=== PATIENT | male | born 1945 | race Caucasian/White ===

== ENCOUNTER 2018-11-10 17:11 | Emergency (ER) | payer MEDICARE ==
[2018-11-10] MEDS ORDERED: fentaNYL 100 MCG/2 ML SDV IVPUSH ONE (17:33)
--- NOTE | 2018-11-10 17:47 | EDM.PDOC ---
ED HPI GENERAL MEDICAL PROBLEM - General Chief Complaint: Abdominal Pain Stated Complaint: SENT FROM CLINIC Time Seen by Provider: 11/10/18 17:32 Source of Information: Reports: Patient, Provider, RN Notes Reviewed History Limitations: Reports: No Limitations - History of Present Illness INITIAL COMMENTS - FREE TEXT/NARRATIVE: 73-year-old gentleman brought over from clinic today for a AAA found on CT scan , he initially presented to the clinic for vague abdominal pain epigastric region for about 1 week evaluation in clinic included lab work CBC and a CMP which were fairly unremarkable CT scan the abdomen does show 6.8 cm dilated abdominal a aortic aneurysm radiology was unclear if this was slightly leaking with impending rupture. Upper Abdomen Pain Score (Numeric/FACES): 5 - Related Data Allergies Allergy/AdvReac Type Severity Reaction Status Date / Time No Known Allergies Allergy Verified 11/10/18 17:29 Home Meds: Home Meds Simvastatin [Zocor] 1 tab PO BEDTIME 06/19/18 [History] Tamsulosin [Flomax] 1 tab PO DAILY 06/19/18 [History] Aspirin [Enrico Chewable] 81 mg PO DAILY 11/10/18 [History] Calcium Carbonate/Vitamin D3 [Calcium Carb 500 MG] 600 mg PO DAILY 11/10/18 [ History] Fish Oil/DHA/EPA [Fish Oil 1,200 MG] 1 tab PO DAILY 11/10/18 [History] Multivitamin [Multi-Vitamin Daily] 1 tab PO DAILY 11/10/18 [History] Past Medical History Cardiovascular History: Reports: High Cholesterol Genitourinary History: Reports: Other (See Below) Other Genitourinary History: 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 Hematospermia - Infectious Disease History Infectious Disease History: Reports: Chicken Pox, Measles, Mumps - Past Surgical History Male Surgical History: Reports: Vasectomy, Other (See Below) Other Male Surgeries/Procedures: reversal of vasectomy Social & Family History - Tobacco Use Smoking Status *Q: Current Every Day Smoker Years of Tobacco use: 60 Packs/Tins Daily: 0.2 Used Tobacco, but Quit: No Second Hand Smoke Exposure: Yes - Caffeine Use Caffeine Use: Reports: Coffee, Energy Drinks, Soda, Tea - Alcohol Use Date of Last Drink: 01/09/18 Time of Last Drink: 20:00 - Recreational Drug Use Recreational Drug Use: No ED ROS GENERAL - Review of Systems Review Of Systems: See Below Constitutional: Reports: No Symptoms HEENT: Reports: No Symptoms Respiratory: Reports: No Symptoms Cardiovascular: Reports: No Symptoms GI/Abdominal: Reports: Abdominal Pain. Denies: Nausea, Vomiting : Reports: No Symptoms Musculoskeletal: Reports: No Symptoms Skin: Reports: No Symptoms Neurological: Reports: No Symptoms ED EXAM, GI/ABD - Physical Exam Exam: See Below Exam Limited By: No Limitations General Appearance: Alert, WD/WN, No Apparent Distress Respiratory/Chest: No Respiratory Distress, Lungs Clear, Normal Breath Sounds, No Accessory Muscle Use, Chest Non-Tender Cardiovascular: Regular Rate, Rhythm, No Murmur GI/Abdominal Exam: Soft, Other (Pulsatile mass) Course - Vital Signs Last Recorded V/S: Last Vital Signs Temp 98.4 F 11/10/18 17:42 Pulse 99 11/10/18 17:51 Resp 23 H 11/10/18 17:51 BP 137/96 H 11/10/18 17:51 Pulse Ox 95 11/10/18 17:51 - Orders/Labs/Meds Orders: Active Orders 24 hr Category Date Time Status EKG Documentation Completion [RC] ASDIRECTED Care 11/10/18 17:53 Active EKG 12 Lead [EK] Stat Ther 11/10/18 17:53 Ordered Meds: Medications Discontinued Medications Generic Name Dose Route Start Last Admin Trade Name Parris PRN Reason Stop Dose Admin Fentanyl 50 mcg 11/10/18 17:33 11/10/18 17:49 Sublimaze IVPUSH 11/10/18 17:34 50 mcg ONETIME ONE Administration Departure - Departure Time of Disposition: 18:04 Disposition: DC/Tfer to Acute Hospital 02 Condition: Poor Clinical Impression: AAA (abdominal aortic aneurysm) Qualifiers: Presence of rupture: without rupture Qualified Code(s): I71.4 - Abdominal aortic aneurysm, without rupture - Discharge Information Referrals: PCP,None [Primary Care Provider] - Forms: ED Department Discharge - My Orders Last 24 Hours: My Active Orders 11/10/18 17:53 EKG Documentation Completion [RC] ASDIRECTED EKG 12 Lead [EK] Stat - Assessment/Plan Last 24 Hours: My Active Orders 11/10/18 17:53 EKG Documentation Completion [RC] ASDIRECTED EKG 12 Lead [EK] Stat Plan: Assessment Acuity = acute Site and laterality = abdominal aortic aneurysm Etiology = unclear etiology Manifestations = abdominal pain Location of injury = Home Lab values = CT scan reveals 6.8 cm abdominal aortic aneurysm radiology was unclear whether this was concern for impending rupture Plan Called discussed case with [facility] at 1730 plan is to have consultation with interventional radiology and general surgery for best course of action after reviewing films. Patient was accepted by Dr. Blue at 1800 will be transported via EMS ground This note was dictated using [employer] voice recognition software please call with any questions on syntax or grammar.
== END 2018-11-10 18:42 ==
LOC: JP.ED 17:11
DX: I71.4 Abdominal aortic aneurysm, without rupture (principal); E78.00 Pure hypercholesterolemia, unspecified; F17.210 Nicotine dependence, cigarettes, uncomplicated; Z79.899 Other long term (current) drug therapy; Z79.82 Long term (current) use of aspirin; R10.13 Epigastric pain; N40.0 Benign prostatic hyperplasia without lower urinary tract symptoms
CPT/HCPCS: 74177; 93005; 96374; 99284; 99285; J3010; J7030; Q9967

== ENCOUNTER 2018-11-17 17:29 | Emergency (ER) | payer MEDICARE ==
--- NOTE | 2018-11-17 18:11 | EDM.PDOC ---
ED HPI GENERAL MEDICAL PROBLEM - General Chief Complaint: Skin Complaint Stated Complaint: COMPLICATIONS FROM SURGERY Time Seen by Provider: 11/17/18 18:00 Source of Information: Reports: Patient, Family History Limitations: Reports: No Limitations - History of Present Illness INITIAL COMMENTS - FREE TEXT/NARRATIVE: 73-year-old male had an aortic repair one week ago with the approach through the groin bilaterally. Yesterday he had a small amount of clear fluid leaking from the incisions and today there is some swelling so she wanted to check. He feels fine he has no fever there is no redness no warmth. Onset: Unknown/Unsure Location: Reports: Other (Bilateral incisions in the groins) Associated Symptoms: Reports: No Other Symptoms Lower Abdomen Pain Score (Numeric/FACES): 2 - Related Data Allergies Allergy/AdvReac Type Severity Reaction Status Date / Time iodine Allergy Rash Verified 11/17/18 17:50 Home Meds: Home Meds Simvastatin [Zocor] 1 tab PO BEDTIME 06/19/18 [History] Tamsulosin [Flomax] 1 tab PO DAILY 06/19/18 [History] Aspirin [Enrico Chewable] 81 mg PO DAILY 11/10/18 [History] Calcium Carbonate/Vitamin D3 [Calcium Carb 500 MG] 600 mg PO DAILY 11/10/18 [ History] Fish Oil/DHA/EPA [Fish Oil 1,200 MG] 1 tab PO DAILY 11/10/18 [History] Multivitamin [Multi-Vitamin Daily] 1 tab PO DAILY 11/10/18 [History] Hydrocodone/Acetaminophen [Hydrocodon-Acetaminophen 5-325] 1 tab PO Q4H PRN 04/29 [History] Past Medical History Cardiovascular History: Reports: Aneurysm, High Cholesterol Respiratory History: Reports: COPD Genitourinary History: Reports: Other (See Below) Other Genitourinary History: 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 Hematospermia Musculoskeletal History: Reports: Back Pain, Chronic - Infectious Disease History Infectious Disease History: Reports: Chicken Pox, Measles, Mumps - Past Surgical History Cardiovascular Surgical History: Reports: AAA Repair Male Surgical History: Reports: Vasectomy, Other (See Below) Other Male Surgeries/Procedures: reversal of vasectomy Neurological Surgical History: Reports: C-Spine Social & Family History - Tobacco Use Smoking Status *Q: Former Smoker Used Tobacco, but Quit: Yes Month/Year Tobacco Last Used: 11/10/2018 - Caffeine Use Caffeine Use: Reports: Coffee - Recreational Drug Use Recreational Drug Use: No ED ROS GENERAL - Review of Systems Review Of Systems: See Below Constitutional: Denies: Fever, Chills HEENT: Reports: No Symptoms Respiratory: Reports: No Symptoms GI/Abdominal: Reports: Abdominal Pain (Some lower abdominal discomfort from the surgery) Skin: Reports: Bruising (Scattered postoperative bruising) ED EXAM, SKIN/RASH Exam: See Below Exam Limited By: No Limitations General Appearance: Alert, No Apparent Distress Respiratory/Chest: No Respiratory Distress GI/Abdominal: Normal Bowel Sounds, Soft Extremities: Other (The incisions in both groins look clean, there is a small amount of swelling at the inferior aspects of both incisions only a few centimeters wide. They are fluctuant, nontender and not warm or red) Course - Vital Signs Last Recorded V/S: Last Vital Signs Temp 97.9 F 11/17/18 17:52 Pulse 78 11/17/18 17:52 Resp 16 11/17/18 17:52 BP 121/58 L 11/17/18 17:52 Pulse Ox 98 11/17/18 17:52 - Re-Assessments/Exams Free Text/Narrative Re-Assessment/Exam: 11/17/18 18:09 This patient has a couple small seromas postoperatively which are not significant enough for a procedure. If they are growing she can get a surgical consultation at the clinic any time this week. They need to be seen if the fluid becomes cloudy, the wounds aristides or become warm. Departure - Departure Time of Disposition: 18:16 Disposition: Home, Self-Care 01 Condition: Good Clinical Impression: Postoperative seroma Qualifiers: Surgical complication system/body Area: subcutaneous tissue Procedure type: non -dermatologic Qualified Code(s): L76.34 - Postprocedural seroma of skin and subcutaneous tissue following other procedure - Discharge Information Instructions: Seroma Referrals: Sanjay Robledo MD [Primary Care Provider] - Forms: ED Department Discharge Care Plan Goals: Continue your current medications, and recheck your incisions if swelling worsens especially increased pain, redness or warmth. Should also be rechecked if the fluid drainage becomes more purulent or odorous
== END 2018-11-17 18:17 | disposition home or self-care (01) ==
LOC: JP.ED 17:29
DX: L76.34 Postprocedural seroma of skin and subcutaneous tissue following other procedure (principal); E78.00 Pure hypercholesterolemia, unspecified; J44.9 Chronic obstructive pulmonary disease, unspecified; Z91.048 Other nonmedicinal substance allergy status; Z79.82 Long term (current) use of aspirin; Z79.899 Other long term (current) drug therapy; Z87.891 Personal history of nicotine dependence
CPT/HCPCS: 99282; 99283

== ENCOUNTER 2019-09-30 09:48 | Day surgery (SDC) | payer MEDICARE ==
[~2019-09-30 09:48] MED LIST: Dexamethasone 4 MG/ML SDV ONE; Glycopyrrolate 0.2 MG/ML 5 ML MDV ONE; Neostigmine Methylsulfate 1 MG/ML 5 ML Syringe ONE; Ondansetron 4 MG/2 ML SDV ONE; Propofol 200 MG/20 ML SDV ONE; Rocuronium 50 MG/5 ML Vial ONE; Succinylcholine 200 MG/10 ML MDV ONE; ceFAZolin 2 GM in Premix Bag 1 BAG IV ONE; fentaNYL 250 MCG/5 ML SDV ONE
[2019-09-30] MEDS ORDERED: Acetaminophen 500 MG Tab PO ONE (10:15)
[2019-09-30] MEDS ORDERED: Albuterol/Ipratropium 3.0-0.5 MG/3 ML Neb Soln NEB ONE (10:32)
[2019-09-30] MEDS ORDERED: Naloxone 0.4 MG/ML SDV ONE (10:34)
[2019-09-30] MEDS ORDERED: Midazolam 1 MG/ML 2 ML SDV ONE (10:59)
[2019-09-30] MEDS ORDERED: Propofol 200 MG/20 ML SDV ONE ×2 (10:59→13:38)
[2019-09-30] MEDS ORDERED: fentaNYL 100 MCG/2 ML SDV ONE ×2 (10:59→13:23)
[2019-09-30] MEDS ORDERED: Dextrose 5%-Lactated Ringers 1,000 ML IV SCH (11:15)
[2019-09-30] MEDS ORDERED: ceFAZolin 2 GM in Premix Bag 1 BAG IV ONE (12:00)
[2019-09-30] MEDS: Lidocaine 1% with EPINEPHrine 1:100,000 50 ML MDV ONE ×2 (12:50→13:35)
[2019-09-30] MEDS: Bupivacaine 0.5% 50 ML MDV ONE ×2 (12:50→13:35)
[2019-09-30] MEDS ORDERED: Ketorolac 60 MG/2 ML SDV ONE (13:49)
[2019-09-30] MEDS: Dextrose 5%-Lactated Ringers 1,000 ML IV SCH (15:29)
[2019-09-30] MEDS: Acetaminophen 325 MG Tab PO SCH ×2 (16:10→21:17)
[2019-09-30] MEDS: ceFAZolin 1 GM in Premix Bag 1 BAG IV SCH (17:27)
[2019-09-30] MEDS: oxyCODONE 5 MG Tab PO PRN (18:56)
[2019-09-30] MEDS ORDERED: Tamsulosin 0.4 MG Cap.ER PO SCH (21:00)
[2019-09-30] MEDS ORDERED: Simvastatin 20 MG Tab PO SCH (21:00)
[2019-10-01] MEDS: ceFAZolin 1 GM in Premix Bag 1 BAG IV SCH ×2 (01:16→09:41)
[2019-10-01] MEDS: Dextrose 5%-Lactated Ringers 1,000 ML IV SCH (01:17)
[2019-10-01] MEDS: Acetaminophen 325 MG Tab PO SCH ×2 (03:31→10:09)
[2019-10-01] MEDS: oxyCODONE 5 MG Tab PO PRN ×2 (03:32→07:41)
[2019-10-01] MEDS ORDERED: Aspirin 81 MG Tab.EC PO SCH (09:00)
--- NOTE | 2019-10-01 12:00 | DISCH ---
ADMISSION DIAGNOSES: 1. Incarcerated left inguinal hernia. 2. Abdominal aortic aneurysm. 3. BPH associated with nocturia. 4. Hyperlipidemia. DISCHARGE DIAGNOSES: Repair of left inguinal hernia with mesh and excision of portion of necrosis for incarcerated left inguinal hernia (direct), left ilioinguinal nerve and ileal hernia inguinal nerve entrapment atrophic for scar entrapment. Date of surgery: 09/30/2019. HISTORY: GENERAL: Watson Villalobos is a 74-year-old male with incarcerated left inguinal hernia. After preoperative evaluation and discussion of possible risks and possible complications, he wished to proceed with surgical procedure. HOSPITAL COURSE: Watson had his surgery on 09/30/2019, had no operative complications. On postoperative day #1, his vital signs were stable, activity was good, pain was controlled, and he was able to be discharged to home. PHYSICAL EXAMINATION: GENERAL: Watson Villalobos is a 74-year-old male. VITAL SIGNS: Height is 5 feet 9 inches, weight is 131 pounds, BMI is 19. TPR is 98.5, 64, 16, blood pressure 109/64. HEENT: Negative. NECK: Supple. HEART: Regular rate and rhythm. LUNGS: Clear. GENITOURINARY: Right inguinal area negative. Left inguinal area dressing is dry and intact. Scrotal support is on. EXTREMITIES: Without peripheral edema. DISPOSITION: Discharged to home. CONDITION: Stable and improving. FOLLOWUP: Appointment with Arnel Taylor MD, on 10/13/2019 at 9 a.m. HOME MEDICATIONS: Oxycodone 5 mg every 6 hours p.r.n. pain #28. Tylenol 650 mg q.6 hours p.r.n. pain. He is to resume his home medication of aspirin 81 mg daily, calcium carbonate 600 mg oral daily, multivitamin 1 tablet daily, fish oil 1200 mg oral daily, Zocor 40 mg oral at bedtime, Flomax 0.4 mg oral daily. DIET: Usual diet as tolerated. Drink 8 to 10 glasses of water a day. ACTIVITY: No lifting greater than 10 pounds for 6 weeks. Walk at least 6 times daily inside your home. Driving: Do not drive for 1 week and while on pain medication. Shower/bathing: May shower. DISCHARGE INSTRUCTIONS: Notify provider if any fever, pain, swelling, redness, nausea, or vomiting. Keep site clean and dry. Leave on Steri-Strips. Use incentive spirometer 10 times every hour while awake.
--- NOTE | 2019-10-04 13:53 | OR ---
DATE OF PROCEDURE: 09/30/2019 SURGEON: Arnel Taylor MD PREOPERATIVE DIAGNOSIS: Left inguinal hernia. POSTOPERATIVE DIAGNOSES: 1. Incarcerated left inguinal hernia. 2. Left ilioinguinal and iliohypogastric nerves at risk for scar entrapment. OPERATIVE PROCEDURE: Inguinal exploration with: 1. Repair of incarcerated left inguinal hernia with mesh plug technique (26028). 2. Excision of portion of left ilioinguinal nerve (45933). 3. Excision of portion of left iliohypogastric nerve (34667). ANESTHESIA: Local plus IV sedation. INDICATION FOR PROCEDURE: This is a 74-year-old presenting with increasingly symptomatic left inguinal hernia. After preoperative evaluation and discussion, he wished to proceed with inguinal hernia repair with a mesh plug technique. Potential risks of the procedure including bleeding, infection, injury to underlying viscera, problems with the hernia recurring or the mesh becoming infected were gone over. That we often will divide the ilioinguinal and/or iliohypogastric nerves in this case so as to avoid chronic pain with the nerve being caught in postoperative scarring was also reviewed with the patient, and he wishes to proceed. DETAILS OF PROCEDURE: The patient was taken to the operating room and placed in supine position. IV sedation was administered, after which the abdomen and groin areas were prepped and draped. The left inguinal area was then anesthetized with 1% lidocaine mixed with Marcaine and a standard left inguinal incision was made and carried down through the skin and subcutaneous tissue and through the external oblique aponeurosis. Subaponeurotic flaps were then raised superiorly and inferiorly. The cord structures were then inspected and found to have no indirect-type hernia. The patient's inguinal floor was the site of the significant patulousness and was obviously the site of hernia. The transversalis fascia was incised in this area, and then an extra large mesh plug was placed into the defect and affixed to Sameer's ligament with titanium tacking screws and then the underside of the conjoint tendon medially, superiorly, and laterally with horizontal mattress sutures of 0 Vicryl stitch. Both the ilioinguinal and iliohypogastric nerves coursed over the area that would be covered by the flat portion of the mesh plug system, and given this, those nerves were excised to a point on the far lateral aspect of the area of exposure. The flat portion of the mesh plug system was then placed across the inguinal floor, affixed to pubic tubercle with titanium tacking screw, and sutured lateral to the cord structures with 4-0 Vicryl stitch. The external oblique aponeurosis was then approximated with a 3-0 Vicryl stitch as was Kentrell's fascia and the skin closed with 4-0 Vicryl subcuticular stitch. Dressing was applied. The patient was taken to the recovery room in satisfactory condition. Physician child nutrition assistant, Zulma Tolentino played an essential role in assisting in this case, helping to position the patient, retract structures as needed, as well as suturing and cutting sutures when indicated. Her presence improved patient safety and decreased the operative time. Arnel Taylor MD /[id number]
== END 2019-10-01 11:00 | disposition home or self-care (01) ==
LOC: JP.SDS 09:48 → JP.MS 14:10 → JP.SDS 10-01 11:00
PROVIDERS: ATTEND Surgery
DX: K40.30 Unilateral inguinal hernia, with obstruction, without gangrene, not specified as recurrent (principal); E78.5 Hyperlipidemia, unspecified; N40.1 Benign prostatic hyperplasia with lower urinary tract symptoms; R35.1 Nocturia; F17.210 Nicotine dependence, cigarettes, uncomplicated; Z79.82 Long term (current) use of aspirin; Z79.899 Other long term (current) drug therapy; Z86.79 Personal history of other diseases of the circulatory system
CPT/HCPCS: 49507; 64772; 94640; 94762; A9270; C1713; C1781; J0690; J1885; J2250; J2704; J3010; J3490; J7121; J0330; J1100; J2310; J2405; J2710; J7620-GY

== ENCOUNTER 2019-10-10 10:26 | Emergency (ER) | payer MEDICARE ==
[2019-10-10] MEDS ORDERED: HYDROmorphone 0.5 MG/0.5 ML Syringe IVPUSH ONE (11:46)
[2019-10-10] MEDS ORDERED: Sodium Chloride 0.9% 1,000 ML IV ONE (11:46)
[2019-10-10] MEDS ORDERED: Sodium Chloride 0.9% 10 ML Syringe FLUSH ONE (12:06)
[2019-10-10] MEDS ORDERED: Iopamidol 612 MG/ML 100 ML Bottle IV SCH (12:15)
--- NOTE | 2019-10-10 12:22 | EDM.PDOC ---
ED HPI GENERAL MEDICAL PROBLEM - General Chief Complaint: Abdominal Pain Stated Complaint: ABD PAIN Time Seen by Provider: 10/10/19 12:17 Source of Information: Reports: Patient, Family History Limitations: Reports: No Limitations - History of Present Illness INITIAL COMMENTS - FREE TEXT/NARRATIVE: 74 years old male patient presented to the ER with a chief complaint of postoperative abdominal pain. She is status post left-sided hernia repair [address] Taylor. Stated last night he ate some yogurt then started having pain 10 out of 10 throughout the whole night. Did not have a good night sleep. Pain improved little bit this morning and now 5 out of 10. Denies any nausea or vomiting. Denies any urinary symptom. Denies any diarrhea or constipation. Normal bowel movement this morning. Denies any fever. Also complaining of pain in his left leg. Worse with any movement. He said his left leg can't hold him and give out on him every time he tries to walk. Left Lower Abdomen Pain Score (Numeric/FACES): 6 - Related Data Allergies Allergy/AdvReac Type Severity Reaction Status Date / Time No Known Allergies Allergy Verified 10/10/19 10:39 Home Meds: Home Meds Simvastatin [Zocor] 40 mg PO BEDTIME 06/19/18 [History] Tamsulosin [Flomax] 0.4 mg PO DAILY 06/19/18 [History] Aspirin [Enrico Chewable Aspirin] 81 mg PO DAILY 11/10/18 [History] Calcium Carbonate/Vitamin D3 [Calcium Carb 500 MG] 600 mg PO DAILY 11/10/18 [ History] Multivitamin [Multi-Vitamin Daily] 1 tab PO DAILY 11/10/18 [History] Acetaminophen [Tylenol Extra Strength] 500 mg PO Q4HR PRN 09/29/19 [History] [place]-3/DHA/Epa/Fish Oil [[place]-3 Fish Oil 1,200 MG Sfgl] 1,200 mg PO DAILY [History] Acetaminophen [Tylenol] 650 mg PO Q6H tablet 10/01/19 [Rx] oxyCODONE 5 mg PO Q6HR #28 tablet 10/01/19 [Rx] Past Medical History HEENT History: Reports: Hard of Hearing Cardiovascular History: Reports: Aneurysm, High Cholesterol Respiratory History: Reports: COPD Gastrointestinal History: Reports: None Genitourinary History: Reports: Prostate Disorder, Other (See Below) Other Genitourinary History: elevated PSA. 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 Musculoskeletal History: Reports: Arthritis, Back Pain, Chronic Neurological History: Reports: None - Infectious Disease History Infectious Disease History: Reports: Chicken Pox, Measles, Mumps Other Infectious Disease History: unknown - Past Surgical History HEENT Surgical History: Reports: None Cardiovascular Surgical History: Reports: AAA Repair Other Cardiovascular Surgeries/Procedures: AAA repair November 10, 2018 Respiratory Surgical History: Reports: None GI Surgical History: Reports: None, Hernia, Inguinal Male Surgical History: Reports: Vasectomy, Other (See Below) Other Male Surgeries/Procedures: reversal of vasectomy Neurological Surgical History: Reports: C-Spine Musculoskeletal Surgical History: Reports: None Social & Family History - Tobacco Use Smoking Status *Q: Current Every Day Smoker Years of Tobacco use: 60 Packs/Tins Daily: 0.5 - Caffeine Use Caffeine Use: Reports: Coffee Caffeine Use Comment: 6 cups/daily - Recreational Drug Use Recreational Drug Use: No ED ROS GENERAL - Review of Systems Review Of Systems: Comprehensive ROS is negative, except as noted in HPI. ED EXAM, GI/ABD - Physical Exam Exam: See Below Exam Limited By: No Limitations General Appearance: Alert, WD/WN, No Apparent Distress Head: Atraumatic, Normocephalic Neck: Normal Inspection, Supple, Non-Tender, Full Range of Motion Respiratory/Chest: No Respiratory Distress, Lungs Clear, Normal Breath Sounds, No Accessory Muscle Use, Chest Non-Tender Cardiovascular: Normal Peripheral Pulses, Regular Rate, Rhythm, No Edema, No Gallop, No JVD, No Murmur, No Rub GI/Abdominal Exam: Normal Bowel Sounds, Soft, No Distention, Other (Surgical wound healing appropriately. No erythema, tenderness or discharge. Abdominal exam appropriately slightly tender.). No: Guarding, Rigid, Rebound Back Exam: Normal Inspection Extremities: Normal Inspection, Normal Range of Motion, Non-Tender, Normal Capillary Refill, No Pedal Edema Neurological: Alert, Oriented, CN II-XII Intact, Normal Cognition, Normal Gait, Normal Reflexes, No Motor/Sensory Deficits Psychiatric: Normal Affect, Normal Mood Skin Exam: Warm, Dry, Intact, Normal Color, No Rash Course - Vital Signs Last Recorded V/S: Last Vital Signs Temp 37.2 C 10/10/19 12:10 Pulse 83 10/10/19 13:36 Resp 16 10/10/19 13:36 BP 90/46 L 10/10/19 13:36 Pulse Ox 96 10/10/19 13:36 - Orders/Labs/Meds Orders: Active Orders 24 hr Category Date Time Status INR,PT,PROTHROMBIN TIME [COAG] Stat Lab 10/10/19 13:35 Ordered PTT,PARTIAL THROMBOPLSTIN TIME [COAG] Stat Lab 10/10/19 13:35 Ordered TYPE AND SCREEN [BBK] Stat Lab 10/10/19 13:26 Ordered UA W/MICROSCOPIC [URIN] Stat Lab 10/10/19 13:36 Ordered Iopamidol [Isovue-300 (61%)] Med 10/10/19 12:15 Active 88 ml IV . DIRECTED Sodium Chloride 0.9% [Normal Saline] 70 ml Med 10/10/19 12:15 Active IV ASDIRECTED Medication Orders Sodium Chloride (Normal Saline) 70 mls @ 3.5 mls/sec IV ASDIRECTED LONG Last Admin: 10/10/19 12:44 Dose: 2.5 mls/sec Iopamidol (Isovue-300 (61%)) 88 ml IV . DIRECTED [facility] Last Admin: 10/10/19 12:43 Dose: 88 ml Labs: Laboratory Tests 10/10/19 10/10/19 Range/Units 12:00 12:00 WBC 9.1 (4.5-11.0) K/uL RBC 4.43 (4.30-5.90) M/uL Hgb 12.1 D (12.0-15.0) g/dL Hct 38.4 L (40.0-54.0) % MCV 87 (80-98) fL MCH 27 (27-31) pg MCHC 32 (32-36) % Plt Count 399 (150-400) K/uL Sodium 133 L (140-148) mmol/L Potassium 4.0 (3.6-5.2) mmol/L Chloride 95 L (100-108) mmol/L Carbon Dioxide 28 (21-32) mmol/L Anion Gap 14.0 (5.0-14.0) mmol/L BUN 11 (7-18) mg/dL Creatinine 0.9 (0.7-1.3) mg/dL Est Cr Clr Drug Dosing 59.15 mL/min Estimated GFR (MDRD) > 60 (>60) BUN/Creatinine Ratio Not Reportable Glucose 113 H (74-106) mg/dL Calcium 9.2 (8.5-10.1) mg/dL Total Bilirubin 0.5 (0.2-1.0) mg/dL AST 16 (15-37) U/L ALT 20 (12-78) U/L Alkaline Phosphatase 79 (46-116) U/L C-Reactive Protein 7.44 H (0.0-0.3) mg/dL Total Protein 8.3 H (6.4-8.2) g/dL Albumin 2.8 L (3.4-5.0) g/dL Globulin 5.5 H (2.3-3.5) g/dL Albumin/Globulin Ratio 0.5 L (1.2-2.2) Lipase 37 L (73-393) U/L Meds: Medications Generic Name Dose Route Start Last Admin Trade Name Freq PRN Reason Stop Dose Admin Sodium Chloride 70 mls @ 3.5 mls/sec 10/10/19 12:15 10/10/19 12:44 Normal Saline IV 2.5 mls/sec ASDIRECTED LONG Administration Iopamidol 88 ml 10/10/19 12:15 10/10/19 12:43 Isovue-300 (61%) IV 88 ml . DIRECTED LONG Administration Discontinued Medications Generic Name Dose Route Start Last Admin Trade Name Freq PRN Reason Stop Dose Admin Hydromorphone HCl 0.5 mg 10/10/19 11:46 10/10/19 12:03 Dilaudid IVPUSH 10/10/19 11:47 0.5 mg ONETIME ONE Administration Sodium Chloride 1,000 mls @ 999 mls/hr 10/10/19 11:46 10/10/19 12:01 Normal Saline IV 10/10/19 12:46 999 mls/hr .BOLUS ONE Administration Sodium Chloride 10 ml 10/10/19 12:06 10/10/19 12:43 Saline Flush FLUSH 10/10/19 12:07 10 ml ONETIME ONE Administration - Re-Assessments/Exams Free Text/Narrative Re-Assessment/Exam: 10/10/19 12:22 Patient was seen and examined shortly after arrival. Stable. Given 1 L normal saline bolus, 0.5 mg IV Dilaudid. Lab and imaging reviewed with the patient. CT scan concerning for left iliac hematoma continuous with a previous abdominal aneurysm repair. Concern for compromised previous AAA repair. Hemoglobin stable 12.4. Blood pressure has been stable all the time 140/80 systolic. Not tachycardic. Case was discussed with the ER physician ER physician at [facility] and he accepted the transfer for further management. He will communicate with the vascular surgeon. Patient currently have two IV in place. PTT and INR has been checked. Type and screen. Helicopter has been contacted and they have O-ve blood on board in case he needed it. Currently stable for transfer. 10/10/19 13:40 Departure - Departure Time of Disposition: 13:38 Disposition: DC/Tfer to Acute Hospital 02 Condition: Critical Clinical Impression: Ruptured abdominal aortic aneurysm - Discharge Information Referrals: Tejinder Liu R[facility]K ADJUSTMENT SPECIALIST [Primary Care Provider] - Forms: ED Department Discharge Sepsis Event Note - Evaluation Sepsis Screening Result: No Definite Risk - Focused Exam Vital Signs: Vital Signs Temp Pulse Resp BP Pulse Ox 10/10/19 13:36 83 16 90/46 L 96 10/10/19 13:30 83 20 129/69 98 10/10/19 12:55 62 20 117/65 95 10/10/19 12:10 37.2 C 64 24 H 122/76 98 10/10/19 10:49 65 124/79 97 10/10/19 10:34 37.0 C 86 24 H 146/90 H 98 Date Exam was Performed: 10/10/19 Time Exam was Performed: 13:38 - My Orders Last 24 Hours: My Active Orders 10/10/19 12:15 Iopamidol [Isovue-300 (61%)] 88 ml IV . DIRECTED Sodium Chloride 0.9% [Normal Saline] 70 ml IV ASDIRECTED 10/10/19 13:26 TYPE AND SCREEN [BBK] Stat 10/10/19 13:35 INR,PT,PROTHROMBIN TIME [COAG] Stat PTT,PARTIAL THROMBOPLSTIN TIME [COAG] Stat 10/10/19 13:36 UA W/MICROSCOPIC [URIN] Stat - Assessment/Plan Last 24 Hours: My Active Orders 10/10/19 12:15 Iopamidol [Isovue-300 (61%)] 88 ml IV . DIRECTED Sodium Chloride 0.9% [Normal Saline] 70 ml IV ASDIRECTED 10/10/19 13:26 TYPE AND SCREEN [BBK] Stat 10/10/19 13:35 INR,PT,PROTHROMBIN TIME [COAG] Stat PTT,PARTIAL THROMBOPLSTIN TIME [COAG] Stat 10/10/19 13:36 UA W/MICROSCOPIC [URIN] Stat Plan: transfer to
--- NOTE | 2019-10-10 13:20 | CRLCT ---
INDICATION: abdomen pain Indication: Abdominal pain. Technique: CT of the abdomen and pelvis. Coronal/sagittal reconstruction images. 88 cc of Isovue-300 IV. Comparison: CTA of the abdomen and pelvis, 12/10/2018. Findings: Lung bases: Calcified granulomas at the lung bases. No pleural or pericardial effusion. Emphysematous changes are present at both lung bases. There is no basilar pneumothorax. Abdomen/pelvis: Non cirrhotic liver morphology. Mild dilation of intrahepatic biliary radicals, primarily in the left hepatic lobe. No perihepatic ascites. No solid hepatic mass. No radiopaque gallstones. No adrenal mass. No hydronephrosis. No perinephric edema. 3 millimeter stone in the left kidney, image 41, series 2. No perinephric inflammatory changes. Calcified splenic granulomas. There is no pancreatic mass or pancreatic duct dilation. No glandular atrophy. There is enlargement of the prostate gland. Postsurgical changes in the pelvis, with gas present within the anterior pelvic wall. This could be related to a prior hernia repair. There is an extraluminal gas and fluid collection adjacent to the urinary bladder, which is seen best on image 101, series 2. This measures 2.8 x 3.3 cm in AP and transverse dimensions. The prostate is enlarged, which may be correlated with digital rectal exam/PSA. The prostate measures 5.7 cm in transverse dimension. There is no evidence for a small bowel or colonic obstruction. There is no pneumatosis. There is no portal venous gas. The patient has undergone endovascular repair of an infrarenal abdominal aortic aneurysm. There is displacement of the IVC by a 3.2 x 3.2 cm mass on image 31, series 2, which is new from previous. Differential diagnostic considerations include a hematoma or necrotic lymph node. There is also a mixed density hematoma in the left lower quadrant, measuring 8.6 x 7.4 cm, image 73, series 2. Aneurysm sac has significantly diminished in size when compared with previous. There is focal outpouching of the sac on image 66, series 2, and vascular consultation is suggested, particularly given the pelvic hematoma. There is no retroperitoneal, gastrohepatic ligament, or portal caval lymphadenopathy. The bone windows demonstrate sclerosis at the symphysis pubis. Degenerative disc disease throughout the thoracolumbar spine. Vertebral body heights are maintained. Degenerative disc disease at the lumbosacral junction. Impression: 1. Hematoma involving the left iliacus muscle, new when compared to 12/10/2018. 2. Prior EVAR of an infrarenal abdominal aortic aneurysm. The aneurysm sac is diminished in size, when compared to the prior CTA, but there is focal outpouching, and the hematoma appears continuous with the aneurysm. Vascular surgery consultation is advised for these findings. A ruptured aneurysm repair is suspected. 3. Postsurgical changes within the pelvis, with gas and fluid within the anterior pelvic wall. 4. Report called to Dr. Sultana, Emergency Department, 10/10/19, 1315 hours. Dictated by Colby Bedoya MD @ 10/10/2019 1:18:57 PM Please note that all CT scans at this facility use dose modulation, iterative reconstruction, and/or weight-based dosing when appropriate to reduce radiation dose to as low as reasonably achievable. Dictated by: Colby Bedoya MD @ 10/10/2019 13:19:08 (Electronically Signed)
== END 2019-10-10 13:40 ==
LOC: JP.ED 10:26
DX: I71.3 Abdominal aortic aneurysm, ruptured (principal); F17.210 Nicotine dependence, cigarettes, uncomplicated; Z79.82 Long term (current) use of aspirin; Z79.899 Other long term (current) drug therapy
CPT/HCPCS: 36415; 74177; 80053; 81001; 83690; 85027; 85610; 85730; 86140; 86850; 86900; 86901; 96361; 96374; 99285; J1170; J7030; J7050; Q9967

== ENCOUNTER 2020-02-17 15:15 | Inpatient (IN) | payer MEDICARE ==
[2020-02-17] MEDS ORDERED: Sodium Chloride 0.9% 1,000 ML IV SCH ×2 (16:45→18:45)
--- NOTE | 2020-02-17 16:47 | EDM.PDOC ---
ED HPI GENERAL MEDICAL PROBLEM - General Chief Complaint: Neurological Problem Stated Complaint: WEAKNESS, SPEECH LOSS Time Seen by Provider: 02/17/20 16:42 Source of Information: Reports: Patient, Family History Limitations: Reports: Altered Mental Status, Other (pt was unable to communicate this am. His speech has come back this afternoon. ) - History of Present Illness INITIAL COMMENTS - FREE TEXT/NARRATIVE: pt had a trible a repair 1 year ago and he is leaking from the mesh. He was supposed to go to the [facility] so this could be repaired. Because of covid this did not happen. He has had swollen feet since he had his hernia repair in Oct. Onset: Other (loss of speech was a acute onset. ) Duration: Hour(s): Location: Reports: Head, Abdomen, Generalized Associated Symptoms: Reports: Malaise, Other (loss of speech. ) Abdominal Pain Score (Numeric/FACES): 5 - Related Data Allergies Allergy/AdvReac Type Severity Reaction Status Date / Time No Known Allergies Allergy Verified 02/17/20 15:55 Home Meds: Home Meds Simvastatin [Zocor] 40 mg PO BEDTIME 06/19/18 [History] Tamsulosin [Flomax] 0.4 mg PO DAILY 06/19/18 [History] Aspirin [Enrico Chewable Aspirin] 81 mg PO DAILY 11/10/18 [History] Multivitamin [Multi-Vitamin Daily] 1 tab PO DAILY 11/10/18 [History] Acetaminophen [Tylenol Extra Strength] 500 mg PO Q4HR PRN 09/29/19 [History] Gabapentin [Neurontin] 300 mg PO TID 12/22/19 [History] Sennosides/Docusate Sodium [Sennosides-Docusate Sodium] 2 tab PO DAILY 12/22/19 [History] oxyCODONE 10 mg PO Q6HR PRN 12/22/19 [History] polyethylene glycoL 3350 [Miralax] 17 gm PO DAILY PRN 12/22/19 [History] Past Medical History HEENT History: Reports: Hard of Hearing Cardiovascular History: Reports: Aneurysm, High Cholesterol Respiratory History: Reports: COPD Gastrointestinal History: Reports: Chronic Constipation Genitourinary History: Reports: Prostate Disorder, Other (See Below) Other Genitourinary History: elevated PSA. 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 Musculoskeletal History: Reports: Arthritis, Back Pain, Chronic Neurological History: Reports: None - Infectious Disease History Infectious Disease History: Reports: Chicken Pox, Measles, Mumps Other Infectious Disease History: unknown - Past Surgical History Head Surgeries/Procedures: Reports: None HEENT Surgical History: Reports: None Cardiovascular Surgical History: Reports: AAA Repair Other Cardiovascular Surgeries/Procedures: AAA repair November 10, 2018 Respiratory Surgical History: Reports: None GI Surgical History: Reports: Hernia, Inguinal Male Surgical History: Reports: Vasectomy, Other (See Below) Other Male Surgeries/Procedures: reversal of vasectomy Neurological Surgical History: Reports: C-Spine Musculoskeletal Surgical History: Reports: None Dermatological Surgical History: Reports: None Social & Family History - Tobacco Use Smoking Status *Q: Current Every Day Smoker Years of Tobacco use: 65 Packs/Tins Daily: 0.5 Used Tobacco, but Quit: No Second Hand Smoke Exposure: No - Caffeine Use Caffeine Use: Reports: Coffee, Tea Caffeine Use Comment: 6 cups/daily - Recreational Drug Use Recreational Drug Use: No ED ROS GENERAL - Review of Systems Review Of Systems: See Below Constitutional: Reports: Weakness, Decreased Appetite, Weight Loss HEENT: Reports: No Symptoms, Other (pt lost his speech this am. ) Respiratory: Reports: No Symptoms Cardiovascular: Reports: No Symptoms Endocrine: Reports: No Symptoms GI/Abdominal: Reports: Abdominal Pain, Constipation, Other (pt has a leak from his tripe a repair. ) : Reports: No Symptoms Musculoskeletal: Reports: No Symptoms Skin: Reports: No Symptoms ED EXAM, NEURO - Physical Exam Exam: See Below Text/Narrative:: pt arrived very pale and cahectic. He has lost alot of weight. He is not eating or drinking. He is not vomiting. He has not had a bm for 10 days to 2 weeks. Exam Limited By: No Limitations General Appearance: Alert, Anxious, Moderate Distress, Other (pupils are equal and reactive. ) Ears: Normal TMs Nose: Normal Inspection Throat/Mouth: Normal Inspection Head Exam: Atraumatic Neck: Normal Inspection Respiratory/Chest: No Respiratory Distress Cardiovascular: Regular Rate, Rhythm GI/Abdominal: Other (lower abdoman is firm and tender to palpate. ) Rectal (Males) Exam: Other (pt has a fecal impaction present. ) Neurological: Alert, Other (pt had slurred spech this am and now this has cleared. ) Back Exam: Normal Inspection Extremities: Other (pt has alot of edema around the ankles) Psychiatric: Anxious Course - Vital Signs Last Recorded V/S: Last Vital Signs Temp 36.2 C 02/20/20 06:01 Pulse 78 02/20/20 06:01 Resp 18 02/20/20 06:01 BP 110/67 02/20/20 06:01 Pulse Ox 98 02/20/20 06:01 - Orders/Labs/Meds Orders: Medication Orders Acetaminophen (Tylenol) 650 mg PO Q4H PRN PRN Reason: Pain Last Admin: 02/20/20 01:16 Dose: 650 mg Documented by: MARI Aspirin (Aspirin) 81 mg PO DAILY [facility] Last Admin: 02/19/20 08:23 Dose: 81 mg Documented by: Admin: 02/18/20 08:46 Dose: 81 mg Documented by: ERNIE Bisacodyl (Dulcolax) 5 mg PO DAILY PRN PRN Reason: Constipation Gabapentin (Neurontin) 300 mg PO TID [facility] Last Admin: 02/19/20 21:12 Dose: 300 mg Documented by: Admin: 02/19/20 14:52 Dose: 300 mg Documented by: Admin: 02/19/20 08:24 Dose: 300 mg Documented by: Admin: 02/18/20 20:44 Dose: 300 mg Documented by: Admin: 02/18/20 16:17 Dose: 300 mg Documented by: Admin: 02/18/20 08:46 Dose: 300 mg Documented by: ERNIE Ceftriaxone Sodium 1 gm/ (Sodium Chloride) 50 mls @ 100 mls/hr IV Q24H [facility] Last Admin: 02/19/20 21:12 Dose: 100 mls/hr Documented by: Admin: 02/18/20 20:46 Dose: 100 mls/hr Documented by: Admin: 02/17/20 21:16 Dose: 100 mls/hr Documented by: SITZMEL Lorazepam (Ativan) 1 mg IV Q6H PRN PRN Reason: Nausea/Vomiting Morphine Sulfate (Morphine) 2 mg IVPUSH Q2H PRN PRN Reason: Pain (severe 7-10) Last Admin: 02/19/20 22:17 Dose: 2 mg Documented by: Admin: 02/19/20 05:45 Dose: 1 mg Documented by: Admin: 02/19/20 00:56 Dose: 1 mg Documented by: MARI Multivitamins/Minerals (Thera M Plus) 1 tab PO DAILY [facility] Last Admin: 02/19/20 08:24 Dose: 1 tab Documented by: Admin: 02/18/20 08:46 Dose: 1 tab Documented by: ERNIE Nicotine (Habitrol) 14 mg TRDERM DAILY [facility] Last Admin: 02/19/20 08:24 Dose: Not Given Documented by: Admin: 02/18/20 08:47 Dose: Not Given Documented by: Admin: 02/18/20 00:38 Dose: Not Given Documented by: VIVIANA Ondansetron HCl (Zofran Odt) 4 mg PO Q6H PRN PRN Reason: Nausea able to take PO Ondansetron HCl (Zofran) 4 mg IV Q4H PRN PRN Reason: Nausea/Vomiting Oxycodone HCl (Oxycodone) 10 mg PO Q4H PRN PRN Reason: Pain (moderate 4-6) Last Admin: 02/19/20 21:11 Dose: 10 mg Documented by: Admin: 02/19/20 08:24 Dose: 10 mg Documented by: Admin: 02/18/20 23:54 Dose: 10 mg Documented by: Admin: 02/18/20 19:28 Dose: 10 mg Documented by: Admin: 02/18/20 06:26 Dose: 10 mg Documented by: Admin: 02/18/20 00:24 Dose: 10 mg Documented by: VIVIANA Pantoprazole Sodium (Protonix Iv) 40 mg IVPUSH BEDTIME [facility] Last Admin: 02/19/20 21:13 Dose: 40 mg Documented by: Admin: 02/18/20 20:44 Dose: 40 mg Documented by: Admin: 02/18/20 00:32 Dose: 40 mg Documented by: VIVIANA Polyethylene Glycol (Miralax) 17 gm PO DAILY [facility] Last Admin: 02/19/20 08:24 Dose: Not Given Documented by: Admin: 02/18/20 08:47 Dose: 17 gm Documented by: Admin: 02/18/20 00:39 Dose: Not Given Documented by: VIVIANA Senna/Docusate Sodium (Senna Plus) 2 tab PO DAILY [facility] Last Admin: 02/19/20 08:24 Dose: Not Given Documented by: Admin: 02/18/20 08:47 Dose: 2 tab Documented by: ERNIE Simvastatin (Zocor) 40 mg PO BEDTIME [facility] Last Admin: 02/19/20 21:13 Dose: 40 mg Documented by: Admin: 02/18/20 20:45 Dose: 40 mg Documented by: MARI Penaloza Biphosphate/Sodium Phosphate (Fleet Enema) 133 ml RECTAL ONETIME PRN PRN Reason: Constipation Tamsulosin HCl (Flomax) 0.4 mg PO DAILY [facility] Last Admin: 02/19/20 08:23 Dose: 0.4 mg Documented by: Admin: 02/18/20 08:46 Dose: 0.4 mg Documented by: ERNIE Labs: Laboratory Tests 02/17/20 02/17/20 02/17/20 Range/Units 16:45 16:45 16:45 WBC 9.9 (4.5-11.0) K/uL RBC 3.07 L (4.30-5.90) M/uL Hgb 7.4 L D (12.0-15.0) g/dL Hct 24.7 L (40.0-54.0) % MCV 81 (80-98) fL MCH 24 L (27-31) pg MCHC 30 L (32-36) % Plt Count 624 H (150-400) K/uL Neut % (Auto) 87 H (36-66) % Lymph % (Auto) 8 L (24-44) % [place] % (Auto) 5 (2-6) % Eos % (Auto) 0 L (2-4) % Baso % (Auto) 0 (0-1) % Sodium 133 L (140-148) mmol/L Potassium 4.0 (3.6-5.2) mmol/L Chloride 98 L (100-108) mmol/L Carbon Dioxide 31 (21-32) mmol/L Anion Gap 8.0 (5.0-14.0) mmol/L BUN 17 D (7-18) mg/dL Creatinine 0.9 (0.8-1.3) mg/dL Est Cr Clr Drug Dosing 54.60 mL/min Estimated GFR (MDRD) > 60 (>60) Glucose 125 H (74-106) mg/dL Calcium 9.2 (8.5-10.1) mg/dL Total Bilirubin 0.5 (0.2-1.0) mg/dL AST 21 (15-37) U/L ALT 18 (12-78) U/L Alkaline Phosphatase 127 H (46-116) U/L C-Reactive Protein 9.78 H (0.0-0.3) mg/dL Total Protein 6.7 (6.4-8.2) g/dL Albumin 1.6 L (3.4-5.0) g/dL Globulin 5.1 H (2.3-3.5) g/dL Albumin/Globulin Ratio 0.3 L (1.2-2.2) Urine Color (YELLOW) Urine Appearance (CLEAR) Urine pH (5.0-8.0) Ur Specific [place] (1.008-1.030) Urine Protein (NEGATIVE) mg/dL Urine Glucose (UA) (NEGATIVE) mg/dL Urine Ketones (NEGATIVE) mg/dL Urine Occult Blood (NEGATIVE) Urine Nitrite (NEGATIVE) Urine Bilirubin (NEGATIVE) Urine Urobilinogen (0.2-1.0) EU/dL Ur Leukocyte Esterase (NEGATIVE) Urine RBC (0-5) Urine WBC (0-5) Ur Epithelial Cells Amorphous Sediment Urine Bacteria Urine Mucus 02/17/20 Range/Units 17:46 WBC (4.5-11.0) K/uL RBC (4.30-5.90) M/uL Hgb (12.0-15.0) g/dL Hct (40.0-54.0) % MCV (80-98) fL MCH (27-31) pg MCHC (32-36) % Plt Count (150-400) K/uL Neut % (Auto) (36-66) % Lymph % (Auto) (24-44) % [place] % (Auto) (2-6) % Eos % (Auto) (2-4) % Baso % (Auto) (0-1) % Sodium (140-148) mmol/L Potassium (3.6-5.2) mmol/L Chloride (100-108) mmol/L Carbon Dioxide (21-32) mmol/L Anion Gap (5.0-14.0) mmol/L BUN (7-18) mg/dL Creatinine (0.8-1.3) mg/dL Est Cr Clr Drug Dosing mL/min Estimated GFR (MDRD) (>60) Glucose (74-106) mg/dL Calcium (8.5-10.1) mg/dL Total Bilirubin (0.2-1.0) mg/dL AST (15-37) U/L ALT (12-78) U/L Alkaline Phosphatase (46-116) U/L C-Reactive Protein (0.0-0.3) mg/dL Total Protein (6.4-8.2) g/dL Albumin (3.4-5.0) g/dL Globulin (2.3-3.5) g/dL Albumin/Globulin Ratio (1.2-2.2) Urine Color Yellow (YELLOW) Urine Appearance Turbid A (CLEAR) Urine pH 7.0 (5.0-8.0) Ur Specific [place] 1.020 (1.008-1.030) Urine Protein Negative (NEGATIVE) mg/dL Urine Glucose (UA) Negative (NEGATIVE) mg/dL Urine Ketones Negative (NEGATIVE) mg/dL Urine Occult Blood Negative (NEGATIVE) Urine Nitrite Negative (NEGATIVE) Urine Bilirubin Negative (NEGATIVE) Urine Urobilinogen 4.0 H (0.2-1.0) EU/dL Ur Leukocyte Esterase Trace H (NEGATIVE) Urine RBC 0-5 (0-5) Urine WBC 20-30 H (0-5) Ur Epithelial Cells Rare Amorphous Sediment Many Urine Bacteria Many Urine Mucus Few Meds: Medications Generic Name Dose Route Start Last Admin Trade Name Freq PRN Reason Stop Dose Admin Acetaminophen 650 mg 02/20/20 01:00 02/20/20 01:16 Tylenol PO 650 mg Q4H PRN Administration Pain Aspirin 81 mg 02/18/20 09:00 02/19/20 08:23 Aspirin PO 81 mg DAILY LONG Administration Bisacodyl 5 mg 02/17/20 22:12 Dulcolax PO DAILY PRN Constipation Gabapentin 300 mg 02/18/20 09:00 02/19/20 21:12 Neurontin PO 300 mg TID LONG Administration Ceftriaxone Sodium 1 gm/ 50 mls @ 100 mls/hr 02/17/20 21:00 02/19/20 21:12 Sodium Chloride IV 100 mls/hr Q24H LONG Administration Lorazepam 1 mg 02/17/20 22:12 Ativan IV Q6H PRN Nausea/Vomiting Morphine Sulfate 2 mg 02/17/20 22:12 02/19/20 22:17 Morphine IVPUSH 2 mg Q2H PRN Administration Pain (severe 7-10) Multivitamins/Minerals 1 tab 02/18/20 09:00 02/19/20 08:24 Thera M Plus PO 1 tab DAILY LONG Administration Nicotine 14 mg 02/17/20 22:12 02/19/20 08:24 Habitrol TRDERM Not Given DAILY LONG Ondansetron HCl 4 mg 02/17/20 22:12 Zofran Odt PO Q6H PRN Nausea able to take PO Ondansetron HCl 4 mg 02/17/20 22:12 Zofran IV Q4H PRN Nausea/Vomiting Oxycodone HCl 10 mg 02/17/20 22:12 02/19/20 21:11 Oxycodone PO 10 mg Q4H PRN Administration Pain (moderate 4-6) Pantoprazole Sodium 40 mg 02/17/20 21:00 02/19/20 21:13 Protonix Iv IVPUSH 40 mg BEDTIME LONG Administration Polyethylene Glycol 17 gm 02/17/20 22:12 02/19/20 08:24 Miralax PO Not Given DAILY LONG Senna/Docusate Sodium 2 tab 02/18/20 09:00 02/19/20 08:24 Senna Plus PO Not Given DAILY LONG Simvastatin 40 mg 02/18/20 21:00 02/19/20 21:13 Zocor PO 40 mg BEDTIME LONG Administration Sodium Biphosphate/Sodium Phosphate 133 ml 02/17/20 22:12 Fleet Enema RECTAL ONETIME PRN Constipation Tamsulosin HCl 0.4 mg 02/18/20 09:00 02/19/20 08:23 Flomax PO 0.4 mg DAILY LONG Administration Discontinued Medications Generic Name Dose Route Start Last Admin Trade Name Freq PRN Reason Stop Dose Admin Bisacodyl 10 mg 02/17/20 22:12 02/18/20 00:38 Dulcolax RECTAL 02/17/20 22:13 10 mg ONETIME ONE Administration Sodium Chloride 1,000 mls @ 500 mls/hr 02/17/20 16:45 02/17/20 17:21 Normal Saline IV 500 mls/hr ASDIRECTED LONG Administration Sodium Chloride 80 mls @ 3 mls/sec 02/17/20 18:15 02/17/20 18:56 Normal Saline IV 3 mls/sec ASDIRECTED LONG Administration Sodium Chloride 1,000 mls @ 300 mls/hr 02/17/20 18:45 02/17/20 19:43 Normal Saline IV 300 mls/hr ASDIRECTED LONG Administration Sodium Chloride 1,000 mls @ 125 mls/hr 02/17/20 22:12 02/18/20 13:52 Normal Saline IV 125 mls/hr ASDIRECTED LONG Administration Potassium Chloride 20 meq/ 112 mls @ 56 mls/hr 02/18/20 09:30 02/18/20 12:43 Lidocaine HCl 2 ml/ Sodium IV 02/18/20 13:29 56 mls/hr Chloride Q2H LONG Administration Sodium Chloride 1,000 mls @ 75 mls/hr 02/18/20 15:15 Normal Saline IV ASDIRECTED LONG Potassium Chloride 20 meq/ 112 mls @ 56 mls/hr 02/19/20 10:00 02/19/20 15:49 Lidocaine HCl 2 ml/ Sodium IV 02/19/20 16:00 Not Given Chloride Q2H LONG Iopamidol 100 ml 02/17/20 18:15 02/17/20 18:56 Isovue-370 (76%) IV 100 ml . DIRECTED LONG Administration Morphine Sulfate 2 mg 02/17/20 20:53 02/17/20 20:57 Morphine IVPUSH 02/17/20 20:54 2 mg ONETIME ONE Administration Sodium Chloride 10 ml 02/17/20 18:14 02/17/20 18:56 Saline Flush FLUSH 10 ml ASDIRECTED PRN Administration Keep Vein Open - Re-Assessments/Exams Free Text/Narrative Re-Assessment/Exam: 02/17/20 18:03 pt has a hg of 7.4. He has not had a stool for at least 10 days. He is not eating and drinking normally. he has chronic abdomanal pain,. He has klost alot of weight. He has had a triple a repair 1 year ago,. He has some leakage of blood into the mesh. He had slurred speech and had trouble expressing himself. He had difficulty for several hours this is now back to normal. He had very dry mucous membranes. Pt had a cat scan of the head which was neg for acute findings. Dr Arvizu invasive neuro at [facility] was consulted and he wanted a ct angiogram of the head and neck. Departure - Departure Time of Disposition: 07:00 Disposition: Admitted As Inpatient 65 Condition: Fair Clinical Impression: Fecal impaction, Speech abnormality, Dehydration Anemia Qualifiers: Anemia type: other cause UTI (urinary tract infection) Qualifiers: Urinary tract infection type: acute cystitis Hematuria presence: with hematuria Qualified Code(s): N30.01 - Acute cystitis with hematuria - Discharge Information Sepsis Event Note (ED) - Evaluation Sepsis Screening Result: No Definite Risk
--- NOTE | 2020-02-17 17:36 | CRLCT ---
INDICATION: Aphasia COMPARISON: None TECHNIQUE: CT examination of the head was performed as axial sections without intravenous contrast. Images were obtained from the vertex of the skull through the skull base. Please note that all CT scans at this facility use dose modulation, iterative reconstruction, and/or weight-based dosing when appropriate to reduce radiation dose to as low as reasonably achievable. FINDINGS: The brain shows no sign of mass lesion, mass effect, hemorrhage, or edema. There is cortical and central atrophy which is overall moderate and proportionate to patient age. There is also moderate white matter disease. This is likely small vessel ischemic. The visualized portions of the orbits are normal in appearance. The osseous structures are normal in their appearance with no sign of abnormality in the skull base or calvarium. IMPRESSION: Age-appropriate involutional changes consisting of cortical and central atrophy and white matter disease. Please note that all CT scans at this facility use dose modulation, iterative reconstruction, and/or weight-based dosing when appropriate to reduce radiation dose to as low as reasonably achievable. Dictated by Arnel Conteh MD @ Feb 17 2020 5:32PM Signed by Dr. Arnel Conteh @ Feb 17 2020 5:35PM
[2020-02-17] MEDS ORDERED: Sodium Chloride 0.9% 10 ML Syringe FLUSH PRN (18:14)
[2020-02-17] MEDS ORDERED: Iopamidol 755 Mg/ML 100 ML Bottle IV SCH (18:15)
[2020-02-17] MEDS ORDERED: Sodium Chloride 0.9% 80 ML IV SCH (18:15)
--- NOTE | 2020-02-17 19:35 | CRLCT ---
DATE: 02/17/2020 CLINICAL HISTORY: Patient with patient with difficulty speaking. TECHNIQUE: Standard helical CT image acquisition through the head and neck was performed after intravenous contrast bolus enhancement. Multiplanar reconstructed images were performed and interpreted. COMPARISON: CT same day. FINDINGS: The origins of the great vessels from the aortic arch are patent. The origin of the right vertebral artery is patent. The origin of the left vertebral artery is patent. The common carotid arteries are patent There is no stenosis at the origin of the right internal carotid artery by NASCET criteria. There is a mild (<50%) stenosis at the origin of the left internal carotid artery by NASCET criteria. This is caused by calcified and non-calcified plaque with a <2mm residual lumen. The rest of the cervical segments of the internal carotid arteries are patent up to their intracranial segments. The intracranial segments of the internal carotid arteries are patent. The right vertebral artery is dominant. The cervical segments of the vertebral arteries are patent. The intracranial segments of the vertebral arteries are patent. There is mild diffuse intracranial atherosclerosis. The visualized lung apices are unremarkable The thyroid gland is unremarkable. The soft tissues of the neck are unremarkable. There are degenerative changes in the cervical spine. IMPRESSION: 1. No proximal intracranial large vessel occlusion. 2. Mild diffuse intracranial atherosclerosis. 3. Mild (<50%) stenosis at the origin of the left internal carotid artery by NASCET criteria caused by calcified and non-calcified plaque with a <2mm residual lumen. Please note that all CT scans at this facility use dose modulation, iterative reconstruction, and/or weight-based dosing when appropriate to reduce radiation dose to as low as reasonably achievable. Dictated by Zofia Nazario MD @ Feb 17 2020 11:35PM Signed by Dr. Zofia Nazario @ Feb 17 2020 11:40PM
--- NOTE | 2020-02-17 19:37 | CRLCT ---
INDICATION: previous AAA repair, constipation, weight loss, abdominal pain COMPARISON: CT 10/10/2019. TECHNIQUE: Routine noncontrast axial CT images of the abdomen and pelvis. Sagittal and coronal reformatted series were also generated and reviewed. - Total exam DLP 425 mGy-cm. FINDINGS: This study is severely limited due to lack of intravenous and enteric contrast. Patient severe cachexia further degrades image quality. - Minimal scarring or atelectasis in the lower lungs. No significant pleural or pericardial effusion. - The liver, gallbladder, pancreas and adrenal glands have an unremarkable noncontrast appearance. Calcified granuloma in the spleen. Punctate nonobstructing stone in the left both kidneys. No hydronephrosis. - Again noted is aorto bi-iliac endo graft repair, not appreciably changed from the prior, although lack of contrast limits evaluation. There has been interval enlargement/recurrence of hematoma involving the left psoas muscle extending into the iliacus now measuring at least 8.7 x 9.1 cm (TV/HOME STAGER). There is new hematoma involving the right psoas extending into the right iliacus. This measures approximately 5.0 x 5.9 cm (TV/AP). - The evaluation of the hollow viscera is significantly limited due to lack of enteric contrast. There is a moderate to large amount of retained formed stool throughout the colon. No evidence of free air. - The urinary bladder is decompressed. Prostate is moderately enlarged. No pelvic mass. - Multilevel degenerative changes of the spine, which are advanced at L5-S1. No acute or aggressive osseous findings. IMPRESSION: 1. Severely limited study, as detailed above. 2. Interval enlargement/recurrence of previously seen presumed large hematoma involving the left psoas and iliacus muscles. Active hemorrhage is not excluded. 3. New hematoma involving the right psoas and iliacus muscles, again active hemorrhage is not excluded. 4. Moderate to large amount of retained formed stool. No convincing evidence of obstruction, perforation or abscess. 5. Status post aorto bi-iliac endo graft repair, the evaluation of which is significantly limited due to lack of IV contrast. 6. Bilateral nephrolithiasis. 7. Other findings, as above. - Note: Findings discussed with Frank LOPEZ) via telephone at 1930 on 02/17/20. Dictated by Ag Fallon MD @ 02/17/2020 7:35:27 PM Please note that all CT scans at this facility use dose modulation, iterative reconstruction, and/or weight-based dosing when appropriate to reduce radiation dose to as low as reasonably achievable. Dictated by: Ag Fallon MD @ 02/17/2020 19:35:35 (Electronically Signed)
[2020-02-17] MEDS ORDERED: Morphine 4 MG/ML Syringe IVPUSH ONE (20:53)
[2020-02-17] MEDS: cefTRIAXone 1 GM in Sodium Chloride 0.9% 50 ML IV SCH (21:16)
--- NOTE | 2020-02-17 21:30 | PCM.HP.2 ---
H&P History of Present Illness - General Date of Service: 02/17/20 Admit Problem/Dx: Admission Diagnosis/Problem Admission Diagnosis/Problem Abdominal pain Source of Information: Patient, Family ( Nora.) History Limitations: Reports: Other (fatigue) - History of Present Illness Initial Comments - Free Text/Narative: chief complaint: abdominal pain and weakness. Onset of Symptoms: Reports: Today (2hour time span of garbled speech resolved without intervention), Gradual (50 pound weight loss since 2019) Duration of Symptoms: Reports: Getting Worse Location: Reports: Abdomen (reports AAA repair 2018 with leakage of mesh noted in October 2019), Generalized (weakness ) Quality: Reports: Ache Severity: Severe Improves with: Reports: Rest Worsens with: Reports: Movement Context: Reports: Other (abdominal pain due to complication of AAA mesh leakage, constipation.) Associated Symptoms: Reports: Loss of Appetite, Malaise, Other (constipation last bowel movement 01-24-2020) - Related Data Allergies/Adverse Reactions: Allergies Allergy/AdvReac Type Severity Reaction Status Date / Time No Known Allergies Allergy Verified 02/17/20 15:55 Home Medications: Home Meds Simvastatin [Zocor] 40 mg PO BEDTIME 06/19/18 [History] Tamsulosin [Flomax] 0.4 mg PO DAILY 06/19/18 [History] Aspirin [Enrico Chewable Aspirin] 81 mg PO DAILY 11/10/18 [History] Multivitamin [Multi-Vitamin Daily] 1 tab PO DAILY 11/10/18 [History] Acetaminophen [Tylenol Extra Strength] 500 mg PO Q4HR PRN 09/29/19 [History] Gabapentin [Neurontin] 300 mg PO TID 12/22/19 [History] Sennosides/Docusate Sodium [Sennosides-Docusate Sodium] 2 tab PO DAILY 12/22/19 [History] oxyCODONE 10 mg PO Q6HR PRN 12/22/19 [History] polyethylene glycoL 3350 [Miralax] 17 gm PO DAILY PRN 12/22/19 [History] Past Medical History HEENT History: Reports: Hard of Hearing Cardiovascular History: Reports: Aneurysm, High Cholesterol Respiratory History: Reports: COPD Gastrointestinal History: Reports: Chronic Constipation Genitourinary History: Reports: Prostate Disorder, Other (See Below) Other Genitourinary History: elevated PSA. 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 Musculoskeletal History: Reports: Arthritis, Back Pain, Chronic Neurological History: Reports: None - Infectious Disease History Infectious Disease History: Reports: Chicken Pox, Measles, Mumps Other Infectious Disease History: unknown - Past Surgical History Head Surgeries/Procedures: Reports: None HEENT Surgical History: Reports: None Cardiovascular Surgical History: Reports: AAA Repair Other Cardiovascular Surgeries/Procedures: AAA repair November 10, 2018 Respiratory Surgical History: Reports: None GI Surgical History: Reports: Hernia, Inguinal Male Surgical History: Reports: Vasectomy, Other (See Below) Other Male Surgeries/Procedures: reversal of vasectomy Neurological Surgical History: Reports: C-Spine Musculoskeletal Surgical History: Reports: None Dermatological Surgical History: Reports: None Social & Family History - Tobacco Use Smoking Status *Q: Current Every Day Smoker Years of Tobacco use: 65 Packs/Tins Daily: 0.5 Used Tobacco, but Quit: No Second Hand Smoke Exposure: No - Caffeine Use Caffeine Use: Reports: Coffee, Tea Caffeine Use Comment: 6 cups/daily - Recreational Drug Use Recreational Drug Use: No - Living Situation & Occupation Living situation: Reports: Occupation: Retired (lives with Nora in [place], [place].) H&P Review of Systems - Review of Systems: Review Of Systems: See Below General: Reports: Malaise, Weakness, Fatigue, Decreased Appetite ( reports he sometimes doesnot eat for days- he will drink a little fluids or maybe Ensure.), Weight Loss (50 pounds since 2019), Other ( reports unable to walk for the past month, has been in bed, he is able to stand briefly to move from bed to bedside commode) HEENT: Reports: No Symptoms, Other (natural teeth present) Pulmonary: Reports: No Symptoms Cardiovascular: Reports: No Symptoms Gastrointestinal: Reports: Abdominal Pain, Constipation Genitourinary: Reports: No Symptoms Musculoskeletal: Reports: Back Pain (hx of C5-C6 fusion, L5-S1 degenerative disease) Skin: Reports: Change in Color (pale) Psychiatric: Reports: No Symptoms Neurological: Reports: Trouble Speaking (2 hours of difficulty speaking resolves on its own, CT scan and CTA negative) Hematologic/Lymphatic: Reports: Anemia Immunologic: Reports: No Symptoms Exam - Exam Exam: See Below - Vital Signs Vital Signs: Last Vital Signs Temp 36.9 C 02/17/20 16:00 Pulse 92 02/17/20 20:46 Resp 19 02/17/20 20:46 BP 119/84 02/17/20 20:46 Pulse Ox 94 L 02/17/20 20:46 Weight: 54.431 kg - Exam Quality Assessment: DVT Prophylaxis General: Alert, Oriented, Cooperative, Moderate Distress (legs pulled up- unable to extend legs straight due to pain.), Other (severe cachexia - skin and bones appearance. face is bony and pale) HEENT: PERRLA, EOMI, Nares Patent, Other (conjunctiva pale. Tongue is dry.) Neck: Supple, Trachea Midline Lungs: Clear to Auscultation, Normal Respiratory Effort Cardiovascular: Regular Rate, Regular Rhythm, Normal S1, Normal S2 GI/Abdominal Exam: Tender (generalized), Abnormal Bowel Sounds (bowel sound positive upper abdomen and dimished in low abdomen.), Other (abdomen is flat) (Male) Exam: Deferred Rectal (Males) Exam: Deferred Back Exam: Other (able to visualize each rib in chest wall) Extremities: Pedal Edema, Slow Capillary Refill, Limited Range of Motion (declines to straight legs out due to abdominal pain), Pallor Skin: Dry, Intact, Cool Neurological: Normal Speech, Other (weakness equal bilateral) Neuro Extensive - Mental Status: Alert, Oriented x3 Psychiatric: Alert, Depressed - Patient Data Lab Results Last 24 hrs: Laboratory Results - last 24 hr 02/17/20 02/17/20 02/17/20 Range/Units 16:45 16:45 16:45 WBC 9.9 (4.5-11.0) K/uL RBC 3.07 L (4.30-5.90) M/uL Hgb 7.4 L D (12.0-15.0) g/dL Hct 24.7 L (40.0-54.0) % MCV 81 (80-98) fL MCH 24 L (27-31) pg MCHC 30 L (32-36) % Plt Count 624 H (150-400) K/uL Neut % (Auto) 87 H (36-66) % Lymph % (Auto) 8 L (24-44) % [place] % (Auto) 5 (2-6) % Eos % (Auto) 0 L (2-4) % Baso % (Auto) 0 (0-1) % Sodium 133 L (140-148) mmol/L Potassium 4.0 (3.6-5.2) mmol/L Chloride 98 L (100-108) mmol/L Carbon Dioxide 31 (21-32) mmol/L Anion Gap 8.0 (5.0-14.0) mmol/L BUN 17 D (7-18) mg/dL Creatinine 0.9 (0.8-1.3) mg/dL Est Cr Clr Drug Dosing 54.60 mL/min Estimated GFR (MDRD) > 60 (>60) Glucose 125 H (74-106) mg/dL Calcium 9.2 (8.5-10.1) mg/dL Total Bilirubin 0.5 (0.2-1.0) mg/dL AST 21 (15-37) U/L ALT 18 (12-78) U/L Alkaline Phosphatase 127 H (46-116) U/L C-Reactive Protein 9.78 H (0.0-0.3) mg/dL Total Protein 6.7 (6.4-8.2) g/dL Albumin 1.6 L (3.4-5.0) g/dL Globulin 5.1 H (2.3-3.5) g/dL Albumin/Globulin Ratio 0.3 L (1.2-2.2) Urine Color (YELLOW) Urine Appearance (CLEAR) Urine pH (5.0-8.0) Ur Specific [place] (1.008-1.030) Urine Protein (NEGATIVE) mg/dL Urine Glucose (UA) (NEGATIVE) mg/dL Urine Ketones (NEGATIVE) mg/dL Urine Occult Blood (NEGATIVE) Urine Nitrite (NEGATIVE) Urine Bilirubin (NEGATIVE) Urine Urobilinogen (0.2-1.0) EU/dL Ur Leukocyte Esterase (NEGATIVE) Urine RBC (0-5) Urine WBC (0-5) Ur Epithelial Cells Amorphous Sediment Urine Bacteria Urine Mucus 02/17/20 Range/Units 17:46 WBC (4.5-11.0) K/uL RBC (4.30-5.90) M/uL Hgb (12.0-15.0) g/dL Hct (40.0-54.0) % MCV (80-98) fL MCH (27-31) pg MCHC (32-36) % Plt Count (150-400) K/uL Neut % (Auto) (36-66) % Lymph % (Auto) (24-44) % [place] % (Auto) (2-6) % Eos % (Auto) (2-4) % Baso % (Auto) (0-1) % Sodium (140-148) mmol/L Potassium (3.6-5.2) mmol/L Chloride (100-108) mmol/L Carbon Dioxide (21-32) mmol/L Anion Gap (5.0-14.0) mmol/L BUN (7-18) mg/dL Creatinine (0.8-1.3) mg/dL Est Cr Clr Drug Dosing mL/min Estimated GFR (MDRD) (>60) Glucose (74-106) mg/dL Calcium (8.5-10.1) mg/dL Total Bilirubin (0.2-1.0) mg/dL AST (15-37) U/L ALT (12-78) U/L Alkaline Phosphatase (46-116) U/L C-Reactive Protein (0.0-0.3) mg/dL Total Protein (6.4-8.2) g/dL Albumin (3.4-5.0) g/dL Globulin (2.3-3.5) g/dL Albumin/Globulin Ratio (1.2-2.2) Urine Color Yellow (YELLOW) Urine Appearance Turbid A (CLEAR) Urine pH 7.0 (5.0-8.0) Ur Specific [place] 1.020 (1.008-1.030) Urine Protein Negative (NEGATIVE) mg/dL Urine Glucose (UA) Negative (NEGATIVE) mg/dL Urine Ketones Negative (NEGATIVE) mg/dL Urine Occult Blood Negative (NEGATIVE) Urine Nitrite Negative (NEGATIVE) Urine Bilirubin Negative (NEGATIVE) Urine Urobilinogen 4.0 H (0.2-1.0) EU/dL Ur Leukocyte Esterase Trace H (NEGATIVE) Urine RBC 0-5 (0-5) Urine WBC 20-30 H (0-5) Ur Epithelial Cells Rare Amorphous Sediment Many Urine Bacteria Many Urine Mucus Few Result Diagrams: 02/17/20 16:45 02/17/20 16:45 Phil Results Last 24 hrs: Microbiology 02/17/20 18:01 Stool Occult Blood (PHIL) - Final Stool / Feces NEGATIVE OCCULT BLOOD REFERENCE RANGE: NEGATIVE Sepsis Event Note - Evaluation Sepsis Screening Result: No Definite Risk - Focused Exam Vital Signs: Vital Signs Temp Pulse Resp BP Pulse Ox 02/17/20 20:46 92 19 119/84 94 L 02/17/20 20:13 74 16 112/74 97 02/17/20 19:43 83 16 117/71 97 02/17/20 19:13 82 13 108/73 97 02/17/20 18:44 82 19 99/61 96 02/17/20 18:20 80 21 H 110/66 95 02/17/20 17:50 93 26 H 104/66 96 02/17/20 17:20 91 16 100/70 96 02/17/20 17:16 91 20 99/66 97 02/17/20 16:38 94 16 97/68 97 02/17/20 16:00 36.9 C 96 15 108/76 02/17/20 15:49 36.9 C 96 15 108/76 Date Exam was Performed: 02/17/20 Time Exam was Performed: 22:48 - Problem List (1) Abdominal pain, chronic, generalized SNOMED Code(s): 073094808 ICD Code: R10.84 - GENERALIZED ABDOMINAL PAIN; G89.29 - OTHER CHRONIC PAIN Status: Acute Priority: High Current Visit: Yes (2) UTI (urinary tract infection) SNOMED Code(s): 32830074 ICD Code: N39.0 - URINARY TRACT INFECTION, SITE NOT SPECIFIED Status: Acute Priority: High Current Visit: Yes Qualifiers: Urinary tract infection type: acute cystitis Hematuria presence: with hematuria Qualified Code(s): N30.01 - Acute cystitis with hematuria (3) Severe malnutrition SNOMED Code(s): 05978013 ICD Code: E43 - UNSPECIFIED SEVERE PROTEIN-CALORIE MALNUTRITION Status: Acute Priority: High Current Visit: Yes (4) Anemia SNOMED Code(s): 019076804 ICD Code: D64.9 - ANEMIA, UNSPECIFIED Status: Acute Priority: High Current Visit: Yes Qualifiers: Anemia type: other cause (5) History of AAA (abdominal aortic aneurysm) repair SNOMED Code(s): 926902770 ICD Code: Z98.890 - OTHER SPECIFIED POSTPROCEDURAL STATES Status: Acute Current Visit: Yes (6) Fecal impaction SNOMED Code(s): 58353678 ICD Code: K56.41 - FECAL IMPACTION Status: Acute Priority: High Current Visit: Yes (7) Tobacco dependence SNOMED Code(s): 54826946 ICD Code: F17.200 - NICOTINE DEPENDENCE, UNSPECIFIED, UNCOMPLICATED Status: Acute Priority: High Current Visit: Yes (8) Edema of both feet SNOMED Code(s): 810760422 ICD Code: R60.0 - LOCALIZED EDEMA Status: Acute Priority: Medium Current Visit: Yes Problem List Initiated/Reviewed/Updated: Yes Orders Last 24hrs: Active Orders 24 hr Category Date Time Status Patient Status Manage Transfer [TRANSFER] Routine ADT 02/17/20 20:46 Active CULTURE URINE [RM] Stat Lab 02/17/20 18:34 Received Iopamidol [Isovue-370 (76%)] Med 02/17/20 18:15 Active 100 ml IV . DIRECTED Sodium Chloride 0.9% [Normal Saline] 1,000 ml Med 02/17/20 16:45 Active IV ASDIRECTED Sodium Chloride 0.9% [Normal Saline] 1,000 ml Med 02/17/20 18:45 Active IV ASDIRECTED Sodium Chloride 0.9% [Normal Saline] 80 ml Med 02/17/20 18:15 Active IV ASDIRECTED Sodium Chloride 0.9% [Saline Flush] Med 02/17/20 18:14 Active 10 ml FLUSH ASDIRECTED PRN cefTRIAXone [Rocephin] 1 gm Med 02/17/20 21:00 Active Sodium Chloride 0.9% [Normal Saline] 50 ml IV Q24H Resuscitation Status Routine Resus Stat 02/17/20 20:48 Ordered Medication Orders Sodium Chloride (Normal Saline) 1,000 mls @ 500 mls/hr IV ASDIRECTED [facility] Last Admin: 02/17/20 17:21 Dose: 500 mls/hr Documented by: HANSA Sodium Chloride (Normal Saline) 80 mls @ 3 mls/sec IV ASDIRECTED [facility] Last Admin: 02/17/20 18:56 Dose: 3 mls/sec Documented by: KATHYA Sodium Chloride (Normal Saline) 1,000 mls @ 300 mls/hr IV ASDIRECTED [facility] Last Admin: 02/17/20 19:43 Dose: 300 mls/hr Documented by: CONTRERAS Ceftriaxone Sodium 1 gm/ (Sodium Chloride) 50 mls @ 100 mls/hr IV Q24H [facility] Last Admin: 02/17/20 21:16 Dose: 100 mls/hr Documented by: CONTRERAS Iopamidol (Isovue-370 (76%)) 100 ml IV . DIRECTED [facility] Last Admin: 02/17/20 18:56 Dose: 100 ml Documented by: KATHYA Sodium Chloride (Saline Flush) 10 ml FLUSH ASDIRECTED PRN PRN Reason: Keep Vein Open Last Admin: 02/17/20 18:56 Dose: 10 ml Documented by: KATHYA Assessment/Plan Comment:: ASSESSMENT / PLAN: Abdominal pain Abdominal pain-chronic greater than 3 months. Mr. Villalobos had a AAA repair in 2018, he developed mesh leakage in October 2019. He was scheduled to have surgical repair October but due to Covid-19 Pandemic, his surgery was put on hold. He has appointment with Dr. Teague at [facility] on February 24, 2020 for consult. and Mrs. Villalobos decline transfer tonight will reassess in morning. -see CT of abdomen-pelvis 02-17-2020 abnormal -IV fluids Normal Saline at 125ml/hr. 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 Hemoglobin 7.4 prior hemoglobin 12.1 on 10-10-2019 -recheck CBC in am Urinary Tract Infection -IV Rocephin 1 gram every 24 hours -urine culture pending Severe Malnutrition Due to Mr. Villalobos abdominal pain he has eaten very little and had a 50 pound weight loss. He is now bedridden and is only able to get to a standing position with the help of his petite to bedside commode then back to bed. muscle wasting is noted. -soft diet -nutritional consult -OT and PT consult Constipation - due to poor dietary intake and narcotic pain medication He is on schedule Percocet 10 mg every 6 hours for pain control and this has caused severe constipation with last bowel movement January 24, 2020. -IV fluids for rehydration -suppository, if not relief fleets enema -daily stool softeners Tobacco Use- smokes at least half a pack a day -Nicotine patch 14 mcg daily Edema both legs lower, chronic -SCD -Elevate legs Maintenance issues -Orders home meds: reviewed -Nutrition: soft regular diet -Flores catheter not indicated at this time -DVT: SCD -PPI: IV Protonix 40mg daily -consult OT for discharge planning -consult PT for strengthening. -consult Spiritual CODE STATUS: FULL CODE Admission status: Admit to [address] [place] [address] Admission justification. This Patient is Admitted for Inpatient Services and is Medically Appropriate and Meets Medical Necessity for Inpatient Admission. I reasonably Expect the Patient will Require Inpatient Services that Span a Period of Over 2 Midnights. My Rationale for Medically Necessary Inpatient Care will be Found in the Admission History & Physical and Progress Notes. I Reasonably Expect the Patient to be Discharged or Transferred within 96 Hours After Admission to this Critical [facility] Hospital. Disposition: [facility]pc home or [facility] Primary care provider: Tejinder Liu NP. Hospitalist: Dr. Brown - Mortality Measure Prognosis:: Poor
[2020-02-17] MEDS ORDERED: Bisacodyl 10 MG Supp RECTAL ONE (22:12)
[2020-02-17] MEDS ORDERED: Bisacodyl 5 MG Tab PO PRN (22:12)
[2020-02-17] MEDS ORDERED: LORazepam 2 MG/ML SDV IV PRN (22:12)
[2020-02-17] MEDS ORDERED: Ondansetron 4 MG/2 ML SDV IV PRN (22:12)
[2020-02-17] MEDS ORDERED: Sodium Phosphate,Monobasic/Sodium Phosphate,Dibasic Enema 133 ML Bottle RECTAL PRN (22:12)
[2020-02-17] MEDS ORDERED: Ondansetron 4 MG Tab.DIS PO PRN (22:12)
[2020-02-17] MEDS: Sodium Chloride 0.9% 1,000 ML IV SCH (22:19)
[2020-02-18] MEDS: oxyCODONE 5 MG Tab PO PRN ×4 (00:24→23:54)
[2020-02-18] MEDS: Pantoprazole 40 MG Vial IVPUSH SCH ×2 (00:32→20:44)
[2020-02-18] MEDS: Nicotine 14 MG/24 Hr Patch TRDERM SCH ×2 (00:38→08:47)
[2020-02-18] MEDS: Polyethylene Glycol 3350 Powder 17 GM Packet PO SCH ×2 (00:39→08:47)
[2020-02-18] MEDS: Gabapentin 300 MG Cap PO SCH ×3 (08:46→20:44)
[2020-02-18] MEDS: Multivitamins with Iron/Calcium/Folic Acid/Minerals Tab PO SCH (08:46)
[2020-02-18] MEDS: Tamsulosin 0.4 MG Cap.ER PO SCH (08:46)
[2020-02-18] MEDS: Aspirin 81 MG Tab.Chew PO SCH (08:46)
[2020-02-18] MEDS: Potassium Chloride 20 MEQ, Lidocaine 1% 2 ML in Sodium Chloride 0.9% 100 ML IV SCH ×2 (10:14→12:43)
[2020-02-18] MEDS: Sodium Chloride 0.9% 1,000 ML IV SCH (13:52)
[2020-02-18] MEDS ORDERED: Sodium Chloride 0.9% 1,000 ML IV SCH (15:15)
--- NOTE | 2020-02-18 15:23 | PCM.PN ---
- General Info Date of Service: 02/18/20 Subjective Update: Mr. Villalobos is a 74-year-old gentleman who was admitted through the emergency department last night with profound weakness and dehydration, secondary to malnutrition and ongoing abdominal pain. In November 2018 he underwent endovascular repair of abdominal aortic aneurysm involving the aorta and both iliacs. Since then he has been found to have evidence of an endovascular leak with a left hematoma. He had been referred to the [facility] for further evaluation and management. Over the past few months he has had ongoing abdominal pain and marked difficulty with eating. During that period of time he has experienced a 50 pound weight loss and has become progressively more weak. CT scan obtained at the time of admission shows a 9 x 9 cm mass/hematoma on the left and a 5 x 5 cm mass/hematoma on the right. With hydration his hemoglobin dropped to below 7 and he has been transfused 1 unit of red blood cells this morning. He is feeling somewhat better since admission but continues to have abdominal pain and a very poor appetite. Functional Status: Reports: Urinating - Review of Systems General: Reports: Weakness. Denies: Fever, Chills Pulmonary: Reports: No Symptoms Cardiovascular: Reports: No Symptoms Gastrointestinal: Reports: Abdominal Pain, Constipation, Decreased Appetite, Nausea. Denies: Diarrhea, Difficulty Swallowing, Hematochezia, Melena, Vomiting Genitourinary: Reports: No Symptoms - Patient Data Vitals - Most Recent: Last Vital Signs Temp 95.5 F L 02/18/20 12:07 Pulse 92 02/18/20 12:07 Resp 14 02/18/20 12:07 BP 110/69 02/18/20 12:07 Pulse Ox 89 L 02/18/20 12:07 Weight - Most Recent: 112 lb I&O - Last 24 Hours: Intake & Output 02/18/20 02/18/20 02/18/20 06:59 14:59 22:59 Intake Total 700 329 Output Total 150 400 Balance 550 -71 Lab Results Last 24 Hours: Laboratory Results - last 24 hr 02/17/20 02/17/20 02/17/20 Range/Units 16:45 16:45 16:45 WBC 9.9 (4.5-11.0) K/uL RBC 3.07 L (4.30-5.90) M/uL Hgb 7.4 L D (12.0-15.0) g/dL Hct 24.7 L (40.0-54.0) % MCV 81 (80-98) fL MCH 24 L (27-31) pg MCHC 30 L (32-36) % Plt Count 624 H (150-400) K/uL Neut % (Auto) 87 H (36-66) % Lymph % (Auto) 8 L (24-44) % [place] % (Auto) 5 (2-6) % Eos % (Auto) 0 L (2-4) % Baso % (Auto) 0 (0-1) % Sodium 133 L (140-148) mmol/L Potassium 4.0 (3.6-5.2) mmol/L Chloride 98 L (100-108) mmol/L Carbon Dioxide 31 (21-32) mmol/L Anion Gap 8.0 (5.0-14.0) mmol/L BUN 17 D (7-18) mg/dL Creatinine 0.9 (0.8-1.3) mg/dL Est Cr Clr Drug Dosing 54.60 mL/min Estimated GFR (MDRD) > 60 (>60) Glucose 125 H (74-106) mg/dL Calcium 9.2 (8.5-10.1) mg/dL Total Bilirubin 0.5 (0.2-1.0) mg/dL AST 21 (15-37) U/L ALT 18 (12-78) U/L Alkaline Phosphatase 127 H (46-116) U/L C-Reactive Protein 9.78 H (0.0-0.3) mg/dL Total Protein 6.7 (6.4-8.2) g/dL Albumin 1.6 L (3.4-5.0) g/dL Globulin 5.1 H (2.3-3.5) g/dL Albumin/Globulin Ratio 0.3 L (1.2-2.2) Urine Color (YELLOW) Urine Appearance (CLEAR) Urine pH (5.0-8.0) Ur Specific [place] (1.008-1.030) Urine Protein (NEGATIVE) mg/dL Urine Glucose (UA) (NEGATIVE) mg/dL Urine Ketones (NEGATIVE) mg/dL Urine Occult Blood (NEGATIVE) Urine Nitrite (NEGATIVE) Urine Bilirubin (NEGATIVE) Urine Urobilinogen (0.2-1.0) EU/dL Ur Leukocyte Esterase (NEGATIVE) Urine RBC (0-5) Urine WBC (0-5) Ur Epithelial Cells Amorphous Sediment Urine Bacteria Urine Mucus Blood Type Gel Antibody Screen Crossmatch 02/17/20 02/18/20 02/18/20 Range/Units 17:46 04:10 04:10 WBC 9.1 (4.5-11.0) K/uL RBC 2.96 L (4.30-5.90) M/uL Hgb 6.8 L* (12.0-15.0) g/dL Hct 23.9 L (40.0-54.0) % MCV 81 (80-98) fL MCH 23 L (27-31) pg MCHC 29 L (32-36) % Plt Count 569 H (150-400) K/uL Neut % (Auto) 88 H (36-66) % Lymph % (Auto) 7 L (24-44) % [place] % (Auto) 5 (2-6) % Eos % (Auto) 0 L (2-4) % Baso % (Auto) 0 (0-1) % Sodium 134 L (140-148) mmol/L Potassium 3.5 L (3.6-5.2) mmol/L Chloride 99 L (100-108) mmol/L Carbon Dioxide 29 (21-32) mmol/L Anion Gap 9.5 (5.0-14.0) mmol/L BUN 14 (7-18) mg/dL Creatinine 0.8 (0.8-1.3) mg/dL Est Cr Clr Drug Dosing 57.39 mL/min Estimated GFR (MDRD) > 60 (>60) Glucose 100 (74-106) mg/dL Calcium 8.8 (8.5-10.1) mg/dL Total Bilirubin (0.2-1.0) mg/dL AST (15-37) U/L ALT (12-78) U/L Alkaline Phosphatase (46-116) U/L C-Reactive Protein (0.0-0.3) mg/dL Total Protein (6.4-8.2) g/dL Albumin (3.4-5.0) g/dL Globulin (2.3-3.5) g/dL Albumin/Globulin Ratio (1.2-2.2) Urine Color Yellow (YELLOW) Urine Appearance Turbid A (CLEAR) Urine pH 7.0 (5.0-8.0) Ur Specific [place] 1.020 (1.008-1.030) Urine Protein Negative (NEGATIVE) mg/dL Urine Glucose (UA) Negative (NEGATIVE) mg/dL Urine Ketones Negative (NEGATIVE) mg/dL Urine Occult Blood Negative (NEGATIVE) Urine Nitrite Negative (NEGATIVE) Urine Bilirubin Negative (NEGATIVE) Urine Urobilinogen 4.0 H (0.2-1.0) EU/dL Ur Leukocyte Esterase Trace H (NEGATIVE) Urine RBC 0-5 (0-5) Urine WBC 20-30 H (0-5) Ur Epithelial Cells Rare Amorphous Sediment Many Urine Bacteria Many Urine Mucus Few Blood Type Gel Antibody Screen Crossmatch 02/18/20 Range/Units 04:10 WBC (4.5-11.0) K/uL RBC (4.30-5.90) M/uL Hgb (12.0-15.0) g/dL Hct (40.0-54.0) % MCV (80-98) fL MCH (27-31) pg MCHC (32-36) % Plt Count (150-400) K/uL Neut % (Auto) (36-66) % Lymph % (Auto) (24-44) % [place] % (Auto) (2-6) % Eos % (Auto) (2-4) % Baso % (Auto) (0-1) % Sodium (140-148) mmol/L Potassium (3.6-5.2) mmol/L Chloride (100-108) mmol/L Carbon Dioxide (21-32) mmol/L Anion Gap (5.0-14.0) mmol/L BUN (7-18) mg/dL Creatinine (0.8-1.3) mg/dL Est Cr Clr Drug Dosing mL/min Estimated GFR (MDRD) (>60) Glucose (74-106) mg/dL Calcium (8.5-10.1) mg/dL Total Bilirubin (0.2-1.0) mg/dL AST (15-37) U/L ALT (12-78) U/L Alkaline Phosphatase (46-116) U/L C-Reactive Protein (0.0-0.3) mg/dL Total Protein (6.4-8.2) g/dL Albumin (3.4-5.0) g/dL Globulin (2.3-3.5) g/dL Albumin/Globulin Ratio (1.2-2.2) Urine Color (YELLOW) Urine Appearance (CLEAR) Urine pH (5.0-8.0) Ur Specific [place] (1.008-1.030) Urine Protein (NEGATIVE) mg/dL Urine Glucose (UA) (NEGATIVE) mg/dL Urine Ketones (NEGATIVE) mg/dL Urine Occult Blood (NEGATIVE) Urine Nitrite (NEGATIVE) Urine Bilirubin (NEGATIVE) Urine Urobilinogen (0.2-1.0) EU/dL Ur Leukocyte Esterase (NEGATIVE) Urine RBC (0-5) Urine WBC (0-5) Ur Epithelial Cells Amorphous Sediment Urine Bacteria Urine Mucus Blood Type A POSITIVE Gel Antibody Screen Negative Crossmatch See Detail Phil Results Last 24 Hours: Microbiology 02/17/20 18:01 Stool Occult Blood (PHIL) - Final Stool / Feces NEGATIVE OCCULT BLOOD REFERENCE RANGE: NEGATIVE Med Orders - Current: Current Medications Aspirin (Aspirin) 81 mg PO DAILY [facility] Last Admin: 02/18/20 08:46 Dose: 81 mg Documented by: Bisacodyl (Dulcolax) 5 mg PO DAILY PRN PRN Reason: Constipation Gabapentin (Neurontin) 300 mg PO TID [facility] Last Admin: 02/18/20 08:46 Dose: 300 mg Documented by: Ceftriaxone Sodium 1 gm/ (Sodium Chloride) 50 mls @ 100 mls/hr IV Q24H [facility] Last Admin: 02/17/20 21:16 Dose: 100 mls/hr Documented by: Sodium Chloride (Normal Saline) 1,000 mls @ 75 mls/hr IV ASDIRECTED [facility] Lorazepam (Ativan) 1 mg IV Q6H PRN PRN Reason: Nausea/Vomiting Morphine Sulfate (Morphine) 2 mg IVPUSH Q2H PRN PRN Reason: Pain (severe 7-10) Multivitamins/Minerals (Thera M Plus) 1 tab PO DAILY [facility] Last Admin: 02/18/20 08:46 Dose: 1 tab Documented by: Nicotine (Habitrol) 14 mg TRDERM DAILY [facility] Last Admin: 02/18/20 08:47 Dose: Not Given Documented by: Ondansetron HCl (Zofran Odt) 4 mg PO Q6H PRN PRN Reason: Nausea able to take PO Ondansetron HCl (Zofran) 4 mg IV Q4H PRN PRN Reason: Nausea/Vomiting Oxycodone HCl (Oxycodone) 10 mg PO Q4H PRN PRN Reason: Pain (moderate 4-6) Last Admin: 02/18/20 06:26 Dose: 10 mg Documented by: Pantoprazole Sodium (Protonix Iv) 40 mg IVPUSH BEDTIME [facility] Last Admin: 02/18/20 00:32 Dose: 40 mg Documented by: Polyethylene Glycol (Miralax) 17 gm PO DAILY [facility] Last Admin: 02/18/20 08:47 Dose: 17 gm Documented by: Senna/Docusate Sodium (Senna Plus) 2 tab PO DAILY [facility] Last Admin: 02/18/20 08:47 Dose: 2 tab Documented by: Simvastatin (Zocor) 40 mg PO BEDTIME [facility] Sodium Biphosphate/Sodium Phosphate (Fleet Enema) 133 ml RECTAL ONETIME PRN PRN Reason: Constipation Tamsulosin HCl (Flomax) 0.4 mg PO DAILY [facility] Last Admin: 02/18/20 08:46 Dose: 0.4 mg Documented by: Discontinued Medications Bisacodyl (Dulcolax) 10 mg RECTAL ONETIME ONE Stop: 02/17/20 22:13 Last Admin: 02/18/20 00:38 Dose: 10 mg Documented by: Sodium Chloride (Normal Saline) 1,000 mls @ 500 mls/hr IV ASDIRECTED [facility] Last Admin: 02/17/20 17:21 Dose: 500 mls/hr Documented by: Sodium Chloride (Normal Saline) 80 mls @ 3 mls/sec IV ASDIRECTED [facility] Last Admin: 02/17/20 18:56 Dose: 3 mls/sec Documented by: Sodium Chloride (Normal Saline) 1,000 mls @ 300 mls/hr IV ASDIRECTED [facility] Last Admin: 02/17/20 19:43 Dose: 300 mls/hr Documented by: Sodium Chloride (Normal Saline) 1,000 mls @ 125 mls/hr IV ASDIRECTED [facility] Last Admin: 02/18/20 13:52 Dose: 125 mls/hr Documented by: Potassium Chloride 20 meq/Lidocaine HCl 2 ml/ Sodium Chloride 112 mls @ 56 mls/hr IV Q2H [facility] Stop: 02/18/20 13:29 Last Admin: 02/18/20 12:43 Dose: 56 mls/hr Documented by: Iopamidol (Isovue-370 (76%)) 100 ml IV . DIRECTED LONG Last Admin: 02/17/20 18:56 Dose: 100 ml Documented by: Morphine Sulfate (Morphine) 2 mg IVPUSH ONETIME ONE Stop: 02/17/20 20:54 Last Admin: 02/17/20 20:57 Dose: 2 mg Documented by: Sodium Chloride (Saline Flush) 10 ml FLUSH ASDIRECTED PRN PRN Reason: Keep Vein Open Last Admin: 02/17/20 18:56 Dose: 10 ml Documented by: - Exam Quality Assessment: DVT Prophylaxis General: Alert, Oriented, Cooperative, Moderate Distress Lungs: Clear to Auscultation, Normal Respiratory Effort, Decreased Breath Sounds Cardiovascular: Regular Rate, Regular Rhythm, No Murmurs GI/Abdominal Exam: Soft, Non-Tender, No Organomegaly, No Distention Extremities: Non-Tender, No Pedal Edema Sepsis Event Note - Evaluation Sepsis Screening Result: No Definite Risk - Focused Exam Vital Signs: Vital Signs Temp Temp Pulse Resp BP Pulse Ox 02/18/20 12:07 95.5 F L 92 14 110/69 89 L 02/18/20 09:55 95.5 F L 69 16 100/63 95 02/18/20 09:25 95.5 F L 70 16 86/63 L 99 02/18/20 08:10 95.5 F L 76 16 109/60 100 02/18/20 08:00 96.2 F L 96 16 106/58 L 93 L 02/18/20 07:55 96.1 F L 76 16 104/62 02/18/20 07:40 96.1 F L 83 18 106/58 L 02/18/20 04:00 97.2 F 101 H 16 104/63 95 Date Exam was Performed: 02/18/20 Time Exam was Performed: 15:16 - Problem List Review Problem List Initiated/Reviewed/Updated: Yes - My Orders Last 24 Hours: My Active Orders 02/18/20 15:00 CORONAVIRUS COVID-19, IVPUL Stat 02/18/20 15:14 HGB [HEMOGLOBIN] [HEME] Stat 02/18/20 15:15 Sodium Chloride 0.9% [Normal Saline] 1,000 ml IV ASDIRECTED 02/19/20 05:00 BASIC METABOLIC PANEL,BMP [CHEM] Timed CBC WITH AUTO DIFF [HEME] Timed - Plan Plan:: ASSESSMENT / PLAN: Abdominal pain Abdominal pain-chronic greater than 3 months. Mr. Villalobos had a AAA repair in 2018, he developed mesh leakage in October 2019. He was scheduled to have surgical repair October but due to Covid-19 Pandemic, his surgery was put on hold. He has appointment with Dr. Teague at [facility] Dept on February 24, 2020 for consult. Discussed current findings with Dr. Teague from the [facility], plan will be to transfer patient there for further evaluation and management when a bed becomes available -see CT of abdomen-pelvis 02-17-2020 abnormal -IV fluids Normal Saline at 75ml/hr. 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 Hemoglobin 7.4 prior hemoglobin 12.1 on 10-10-2019. Status post transfusion of 1 unit of red blood cells -Follow-up hemoglobin now and in a.m. Urinary Tract Infection -IV Rocephin 1 gram every 24 hours -urine culture pending Severe Malnutrition Due to Mr. Villalobos abdominal pain he has eaten very little and had a 50 pound weight loss. He is now bedridden and is only able to get to a standing position with the help of his petite -Nutritional supplement 4 times daily -soft diet -nutritional consult -OT and PT consult Constipation - due to poor dietary intake and narcotic pain medication. Has had bowel movements since admission -IV fluids for rehydration -daily stool softeners Tobacco Use- smokes at least half a pack a day -Nicotine patch 14 mcg daily Edema both legs lower, chronic -SCD -Elevate legs Maintenance issues -Orders home meds: reviewed -Nutrition: soft regular diet -Flores catheter not indicated at this time -DVT: SCD -PPI: IV Protonix 40mg daily -consult OT for discharge planning -consult PT for strengthening. -consult Spiritual CODE STATUS: FULL CODE Admission status: Admit to [address] [place] [address] justification. This Patient is Admitted for Inpatient Services and is Medically Appropriate and Meets Medical Necessity for Inpatient Admission. I reasonably Expect the Patient will Require Inpatient Services that Span a Period of Over 2 Midnights. My Rationale for Medically Necessary Inpatient Care will be Found in the Admission History & Physical and Progress Notes. I Reasonably Expect the Patient to be Discharged or Transferred within 96 Hours After Admission to this Critical [facility] Hospital. Disposition: intermediate home or [facility] Primary care provider: Tejinder Liu NP. Hospitalist: Dr. Brown
[2020-02-18] MEDS: Simvastatin 20 MG Tab PO SCH (20:45)
[2020-02-18] MEDS: cefTRIAXone 1 GM in Sodium Chloride 0.9% 50 ML IV SCH (20:46)
[2020-02-19] MEDS: Morphine 2 MG/ML SYRINGE IVPUSH PRN ×3 (00:56→22:17)
[2020-02-19] MEDS: Aspirin 81 MG Tab.Chew PO SCH (08:23)
[2020-02-19] MEDS: Tamsulosin 0.4 MG Cap.ER PO SCH (08:23)
[2020-02-19] MEDS: Gabapentin 300 MG Cap PO SCH ×3 (08:24→21:12)
[2020-02-19] MEDS: Multivitamins with Iron/Calcium/Folic Acid/Minerals Tab PO SCH (08:24)
[2020-02-19] MEDS: Nicotine 14 MG/24 Hr Patch TRDERM SCH (08:24)
[2020-02-19] MEDS: Polyethylene Glycol 3350 Powder 17 GM Packet PO SCH (08:24)
[2020-02-19] MEDS: oxyCODONE 5 MG Tab PO PRN ×2 (08:24→21:11)
--- NOTE | 2020-02-19 11:21 | PCM.PN ---
- General Info Date of Service: 02/19/20 Subjective Update: Mr. Villalobos has been stable since yesterday, good vital signs and he has remained afebrile. Hemoglobin this morning was 7.6 and decision was made to transfuse 1 additional unit of red blood cells because of his underlying COPD, to try and maintain hemoglobin greater than 8. Plan is for transfer to the [facility] when a bed becomes available. Functional Status: Reports: Tolerating Diet, Ambulating, Urinating - Review of Systems General: Reports: Weakness, Fatigue. Denies: Fever, Chills Pulmonary: Reports: No Symptoms Cardiovascular: Reports: No Symptoms Gastrointestinal: Reports: Abdominal Pain, Decreased Appetite. Denies: Difficulty Swallowing, Hematochezia, Melena, Nausea, Vomiting Genitourinary: Reports: No Symptoms - Patient Data Vitals - Most Recent: Last Vital Signs Temp 97.0 F 02/19/20 11:01 Pulse 79 02/19/20 11:01 Resp 16 02/19/20 11:01 BP 101/55 L 02/19/20 11:01 Pulse Ox 93 L 02/19/20 11:01 Weight - Most Recent: 112 lb I&O - Last 24 Hours: Intake & Output 02/18/20 02/19/20 02/19/20 22:59 06:59 14:59 Intake Total 1550 3260 240 Output Total 275 300 Balance 1275 2960 240 Lab Results Last 24 Hours: Laboratory Results - last 24 hr 02/18/20 02/18/20 02/18/20 Range/Units 04:10 15:14 17:09 WBC (4.5-11.0) K/uL RBC (4.30-5.90) M/uL Hgb 8.9 L D (12.0-15.0) g/dL Hct (40.0-54.0) % MCV (80-98) fL MCH (27-31) pg MCHC (32-36) % Plt Count (150-400) K/uL Neut % (Auto) (36-66) % Lymph % (Auto) (24-44) % [place] % (Auto) (2-6) % Eos % (Auto) (2-4) % Baso % (Auto) (0-1) % Sodium (140-148) mmol/L Potassium (3.6-5.2) mmol/L Chloride (100-108) mmol/L Carbon Dioxide (21-32) mmol/L Anion Gap (5.0-14.0) mmol/L BUN (7-18) mg/dL Creatinine (0.8-1.3) mg/dL Est Cr Clr Drug Dosing mL/min Estimated GFR (MDRD) (>60) Glucose (74-106) mg/dL Calcium (8.5-10.1) mg/dL SARS Virus RNA (PCR) Negative (NEGATIVE) Blood Type A POSITIVE Gel Antibody Screen Negative Crossmatch See Detail 02/19/20 02/19/20 Range/Units 04:25 04:25 WBC 6.7 (4.5-11.0) K/uL RBC 3.09 L (4.30-5.90) M/uL Hgb 7.6 L (12.0-15.0) g/dL Hct 25.4 L (40.0-54.0) % MCV 82 (80-98) fL MCH 25 L (27-31) pg MCHC 30 L (32-36) % Plt Count 505 H (150-400) K/uL Neut % (Auto) 85 H (36-66) % Lymph % (Auto) 10 L (24-44) % [place] % (Auto) 6 (2-6) % Eos % (Auto) 0 L (2-4) % Baso % (Auto) 0 (0-1) % Sodium 134 L (140-148) mmol/L Potassium 3.4 L (3.6-5.2) mmol/L Chloride 102 (100-108) mmol/L Carbon Dioxide 28 (21-32) mmol/L Anion Gap 7.4 (5.0-14.0) mmol/L BUN 14 (7-18) mg/dL Creatinine 0.8 (0.8-1.3) mg/dL Est Cr Clr Drug Dosing 57.33 mL/min Estimated GFR (MDRD) > 60 (>60) Glucose 114 H (74-106) mg/dL Calcium 8.5 (8.5-10.1) mg/dL SARS Virus RNA (PCR) (NEGATIVE) Blood Type Gel Antibody Screen Crossmatch Phil Results Last 24 Hours: Microbiology 02/17/20 18:34 Urine Culture - Preliminary Urine, Bladder Med Orders - Current: Current Medications Aspirin (Aspirin) 81 mg PO DAILY [facility] Last Admin: 02/19/20 08:23 Dose: 81 mg Documented by: Bisacodyl (Dulcolax) 5 mg PO DAILY PRN PRN Reason: Constipation Gabapentin (Neurontin) 300 mg PO TID [facility] Last Admin: 02/19/20 08:24 Dose: 300 mg Documented by: Ceftriaxone Sodium 1 gm/ (Sodium Chloride) 50 mls @ 100 mls/hr IV Q24H [facility] Last Admin: 02/18/20 20:46 Dose: 100 mls/hr Documented by: Potassium Chloride 20 meq/Lidocaine HCl 2 ml/ Sodium Chloride 112 mls @ 56 mls/hr IV Q2H [facility] Stop: 02/19/20 13:59 Lorazepam (Ativan) 1 mg IV Q6H PRN PRN Reason: Nausea/Vomiting Morphine Sulfate (Morphine) 2 mg IVPUSH Q2H PRN PRN Reason: Pain (severe 7-10) Last Admin: 02/19/20 05:45 Dose: 1 mg Documented by: Multivitamins/Minerals (Thera M Plus) 1 tab PO DAILY [facility] Last Admin: 02/19/20 08:24 Dose: 1 tab Documented by: Nicotine (Habitrol) 14 mg TRDERM DAILY [facility] Last Admin: 02/19/20 08:24 Dose: Not Given Documented by: Ondansetron HCl (Zofran Odt) 4 mg PO Q6H PRN PRN Reason: Nausea able to take PO Ondansetron HCl (Zofran) 4 mg IV Q4H PRN PRN Reason: Nausea/Vomiting Oxycodone HCl (Oxycodone) 10 mg PO Q4H PRN PRN Reason: Pain (moderate 4-6) Last Admin: 02/19/20 08:24 Dose: 10 mg Documented by: Pantoprazole Sodium (Protonix Iv) 40 mg IVPUSH BEDTIME [facility] Last Admin: 02/18/20 20:44 Dose: 40 mg Documented by: Polyethylene Glycol (Miralax) 17 gm PO DAILY [facility] Last Admin: 02/19/20 08:24 Dose: Not Given Documented by: Senna/Docusate Sodium (Senna Plus) 2 tab PO DAILY [facility] Last Admin: 02/19/20 08:24 Dose: Not Given Documented by: Simvastatin (Zocor) 40 mg PO BEDTIME [facility] Last Admin: 02/18/20 20:45 Dose: 40 mg Documented by: Sodium Biphosphate/Sodium Phosphate (Fleet Enema) 133 ml RECTAL ONETIME PRN PRN Reason: Constipation Tamsulosin HCl (Flomax) 0.4 mg PO DAILY [facility] Last Admin: 02/19/20 08:23 Dose: 0.4 mg Documented by: Discontinued Medications Bisacodyl (Dulcolax) 10 mg RECTAL ONETIME ONE Stop: 02/17/20 22:13 Last Admin: 02/18/20 00:38 Dose: 10 mg Documented by: Sodium Chloride (Normal Saline) 1,000 mls @ 500 mls/hr IV ASDIRECTED [facility] Last Admin: 02/17/20 17:21 Dose: 500 mls/hr Documented by: Sodium Chloride (Normal Saline) 80 mls @ 3 mls/sec IV ASDIRECTED [facility] Last Admin: 02/17/20 18:56 Dose: 3 mls/sec Documented by: Sodium Chloride (Normal Saline) 1,000 mls @ 300 mls/hr IV ASDIRECTED [facility] Last Admin: 02/17/20 19:43 Dose: 300 mls/hr Documented by: Sodium Chloride (Normal Saline) 1,000 mls @ 125 mls/hr IV ASDIRECTED [facility] Last Admin: 02/18/20 13:52 Dose: 125 mls/hr Documented by: Potassium Chloride 20 meq/Lidocaine HCl 2 ml/ Sodium Chloride 112 mls @ 56 mls/hr IV Q2H [facility] Stop: 02/18/20 13:29 Last Admin: 02/18/20 12:43 Dose: 56 mls/hr Documented by: Sodium Chloride (Normal Saline) 1,000 mls @ 75 mls/hr IV ASDIRECTED [facility] Iopamidol (Isovue-370 (76%)) 100 ml IV . DIRECTED [facility] Last Admin: 02/17/20 18:56 Dose: 100 ml Documented by: Morphine Sulfate (Morphine) 2 mg IVPUSH ONETIME ONE Stop: 02/17/20 20:54 Last Admin: 02/17/20 20:57 Dose: 2 mg Documented by: Sodium Chloride (Saline Flush) 10 ml FLUSH ASDIRECTED PRN PRN Reason: Keep Vein Open Last Admin: 02/17/20 18:56 Dose: 10 ml Documented by: - Exam Quality Assessment: Supplemental Oxygen, DVT Prophylaxis General: Alert, Oriented, Cooperative, Mild Distress Lungs: Clear to Auscultation, Normal Respiratory Effort Cardiovascular: Regular Rate, Regular Rhythm, No Murmurs GI/Abdominal Exam: Soft, No Organomegaly, Tender. No: Distended, Guarding, Rigid, Rebound Extremities: Non-Tender, No Pedal Edema Skin: Warm, Dry, Intact Sepsis Event Note - Evaluation Sepsis Screening Result: No Definite Risk - Focused Exam Vital Signs: Vital Signs Temp Temp Pulse Resp BP Pulse Ox Pulse Ox 02/19/20 11:01 97.0 F 79 16 101/55 L 93 L 02/19/20 10:30 97.7 F 86 14 100/69 91 L 02/19/20 10:00 97.9 F 77 14 98/65 93 L 02/19/20 09:46 97.7 F 71 16 101/67 95 02/19/20 09:30 97.5 F 75 16 110/22 L 95 02/19/20 09:15 97.5 F 77 14 95/64 95 02/19/20 09:09 97.2 F 72 16 101/59 L 97 02/19/20 09:00 97.1 F 75 14 107/80 96 02/19/20 08:00 95 02/19/20 07:00 97.1 F 82 18 97/68 98 02/19/20 03:00 98.1 F 82 18 109/71 98 Date Exam was Performed: 02/19/20 Time Exam was Performed: 11:17 - Problem List Review Problem List Initiated/Reviewed/Updated: Yes - My Orders Last 24 Hours: My Active Orders 02/19/20 08:12 Transfuse Red Blood Cells [COMM] Stat 02/19/20 10:00 Potassium Chloride 20 meq Lidocaine 1% [Xylocaine 1%] 2 ml Sodium Chloride 0.9% [Normal Saline] 100 ml IV Q2H 02/19/20 11:16 Convert IV to Saline Lock [OM.PC] Routine 02/20/20 05:00 BASIC METABOLIC PANEL,BMP [CHEM] Timed CBC WITH AUTO DIFF [HEME] Timed - Plan Plan:: ASSESSMENT / PLAN Abdominal pain-likely secondary to bilateral hematomas and endovascular leak -Pain medication as needed -Transfer to the [facility] when a bed becomes available 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 Hemoglobin 7.4 prior hemoglobin 12.1 on 10-10-2019. Status post transfusion of 1 unit of red blood cells, one 7.6 this morning. Will plan to transfuse 1 additional unit of red blood cells to increase his hemoglobin to greater than 8 in light of his severe compromise, probable upcoming surgery, and underlying COPD -Transfuse an additional unit of red blood cells this morning -Follow-up hemoglobin in a.m. Urinary Tract Infection -IV Rocephin 1 gram every 24 hours -urine culture pending Severe Malnutrition Due to Mr. Villalobos abdominal pain he has eaten very little and had a 50 pound weight loss. He is now bedridden and is only able to get to a standing position with the help of his petite -Nutritional supplement 4 times daily -soft diet -nutritional consult -OT and PT consult Constipation - due to poor dietary intake and narcotic pain medication. Has had bowel movements since admission -Saline lock IV -daily stool softeners Tobacco Use- smokes at least half a pack a day -Nicotine patch 14 mcg daily Edema both legs lower, chronic -SCD -Elevate legs Maintenance issues -Orders home meds: reviewed -Nutrition: soft regular diet -Flores catheter not indicated at this time -DVT: SCD -PPI: IV Protonix 40mg daily -consult OT for discharge planning -consult PT for strengthening. -consult Spiritual CODE STATUS: FULL CODE Admission status: Admit to [address] [place] [id number] Admission justification. This Patient is Admitted for Inpatient Services and is Medically Appropriate and Meets Medical Necessity for Inpatient Admission. I reasonably Expect the Patient will Require Inpatient Services that Span a Period of Over 2 Midnights. My Rationale for Medically Necessary Inpatient Care will be Found in the Admission History & Physical and Progress Notes. I Reasonably Expect the Patient to be Discharged or Transferred within 96 Hours After Admission to this [facility]. Disposition: detention home or [facility] Primary care provider: Tejinder Liu NP. Hospitalist: Dr. Brown
[2020-02-19] MEDS: Potassium Chloride 20 MEQ, Lidocaine 1% 2 ML in Sodium Chloride 0.9% 100 ML IV SCH ×3 (12:06→15:49)
[2020-02-19] MEDS: cefTRIAXone 1 GM in Sodium Chloride 0.9% 50 ML IV SCH (21:12)
[2020-02-19] MEDS: Pantoprazole 40 MG Vial IVPUSH SCH (21:13)
[2020-02-19] MEDS: Simvastatin 20 MG Tab PO SCH (21:13)
[2020-02-20] MEDS ORDERED: Acetaminophen 325 MG Tab PO PRN (01:00)
[2020-02-20] MEDS: oxyCODONE 5 MG Tab PO PRN (07:34)
--- NOTE | 2020-02-20 08:42 | PCM.DCSUM1 ---
Discharge Summary - Hospital Course Brief History: Mr. Villalobos is a 74-year-old gentleman who was admitted through the emergency department with profound weakness and malnutrition secondary to underlying urinary tract infection and chronic abdominal pain secondary to endovascular leak with bilateral retroperitoneal hematomas. - Discharge Data Discharge Date: 02/20/20 Discharge Disposition: Home, Self-Care 01 Condition: Poor - Referral to Home Health Primary Care Physician: Tejinder Liu NP - Discharge Diagnosis/Problem(s) (1) Anemia SNOMED Code(s): 560244438 ICD Code: D64.9 - ANEMIA, UNSPECIFIED Status: Acute Priority: High Current Visit: Yes Qualifiers: Anemia type: other cause (2) Fecal impaction SNOMED Code(s): 47027872 ICD Code: K56.41 - FECAL IMPACTION Status: Acute Priority: High Current Visit: Yes (3) UTI (urinary tract infection) SNOMED Code(s): 00488363 ICD Code: N39.0 - URINARY TRACT INFECTION, SITE NOT SPECIFIED Status: Acute Priority: High Current Visit: Yes Qualifiers: Urinary tract infection type: acute cystitis Hematuria presence: with hematuria Qualified Code(s): N30.01 - Acute cystitis with hematuria (4) Dehydration SNOMED Code(s): 15114024 ICD Code: E86.0 - DEHYDRATION Status: Acute Current Visit: Yes (5) Severe malnutrition SNOMED Code(s): 61346379 ICD Code: E43 - UNSPECIFIED SEVERE PROTEIN-CALORIE MALNUTRITION Status: Acute Priority: High Current Visit: Yes (6) AAA (abdominal aortic aneurysm) SNOMED Code(s): 133114686 ICD Code: I71.4 - ABDOMINAL AORTIC ANEURYSM, WITHOUT RUPTURE Status: Chronic Current Visit: No Qualifiers: Presence of rupture: without rupture Qualified Code(s): I71.4 - Abdominal aortic aneurysm, without rupture (7) Retroperitoneal hematoma SNOMED Code(s): 788362607 ICD Code: K66.1 - HEMOPERITONEUM Status: Acute Current Visit: Yes - Patient Summary/Data Consults: Consultations 02/17/20 22:12 Consult to Spiritual Care [CONS] Routine OT Evaluation and Treatment [CONS] Routine Please Evaluate and Treat. OT Reason for Consult: Discharge Planning This query below is only for informational purposes and is not editable. PT Evaluation and Treatment [CONS] Routine Please Evaluate and Treat. PT Reason for Consult: Strengthening This query below is only for informational purposes and is not editable. 02/18/20 09:00 Nutrition Reassessment/Plan, Adult [Consult to Hand Sprayer] [CONS] Routine Comment: Physician Instructions: Quantity: Reason for Consult: 50 pound wt loss due to pain Hospital Course: Mr. Villalobos is a 74-year-old gentleman who was admitted through the emergency department last night with profound weakness and dehydration, secondary to malnutrition and ongoing abdominal pain. In November 2018 he underwent endovascular repair of abdominal aortic aneurysm involving the aorta and both iliacs. Since then he has been found to have evidence of an endovascular leak with a left hematoma. He had been referred to the [facility] for further evaluation and management. Over the past few months he has had ongoing abdominal pain and marked difficulty with eating. During that period of time he has experienced a 50 pound weight loss and has become progressively more weak. CT scan obtained at the time of admission shows a 9 x 9 cm mass/hematoma on the left and a 5 x 5 cm mass/hematoma on the right. While in the emergency department he was also found to have evidence of urinary tract infection. Urine culture was obtained and he was started on IV antibiotic therapy with ceftriaxone. He received IV fluids for hydration and was started on oral nutritional supplementation. The morning after admission, with hydration hemoglobin had dropped below 7 and he was transfused 1 unit of red blood cells. Despite this he remains very weak and short of breath. Hemoglobin did come up to 7.6 following transfusion and he was transfused 1 additional unit of red blood cells because of his underlying COPD. Findings and current condition were reviewed with Dr. Teague from the Department of vascular surgery at the [facility]. He will be transferred to the care of Dr. Teague for further evaluation and management of his probable endovascular leak. He will be transferred via [facility]. - Patient Instructions Diet: Usual Diet as Tolerated Activity: As Tolerated Other/Special Instructions: Transfer to the [facility] via [facility] for further subspecialty evaluation and management. - Discharge Plan *PRESCRIPTION DRUG MONITORING PROGRAM REVIEWED*: Not Applicable *COPY OF PRESCRIPTION DRUG MONITORING REPORT IN PATIENT DAVID: Not Applicable Home Medications: Home Meds Simvastatin [Zocor] 40 mg PO BEDTIME 06/19/18 [History] Tamsulosin [Flomax] 0.4 mg PO DAILY 06/19/18 [History] Aspirin [Enrico Chewable Aspirin] 81 mg PO DAILY 11/10/18 [History] Multivitamin [Multi-Vitamin Daily] 1 tab PO DAILY 11/10/18 [History] Acetaminophen [Tylenol Extra Strength] 500 mg PO Q4HR PRN 09/29/19 [History] Gabapentin [Neurontin] 300 mg PO TID 12/22/19 [History] Sennosides/Docusate Sodium [Sennosides-Docusate Sodium] 2 tab PO DAILY 12/22/19 [History] oxyCODONE 10 mg PO Q6HR PRN 12/22/19 [History] polyethylene glycoL 3350 [Miralax] 17 gm PO DAILY PRN 12/22/19 [History] Nicotine [Habitrol] 14 mg TRDERM DAILY patch 02/20/20 [Rx] Pantoprazole [ProTONIX IV] 40 mg IVPUSH BEDTIME vial 02/20/20 [Rx] cefTRIAXone [Rocephin] 1 gm IV Q24H adv 02/20/20 [Rx] Referrals: Tejinder Liu NP [Primary Care Provider] - - Discharge Summary/Plan Comment DC Time >30 min.: No - Patient Data Vitals - Most Recent: Last Vital Signs Temp 96.8 F L 02/20/20 07:00 Pulse 82 02/20/20 07:00 Resp 18 02/20/20 07:00 BP 98/69 02/20/20 07:00 Pulse Ox 89 L 02/20/20 07:00 Weight - Most Recent: 112 lb I&O - Last 24 hours: Intake & Output 02/19/20 02/20/20 02/20/20 22:59 06:59 14:59 Intake Total 960 473 Output Total 200 75 Balance 760 -75 473 Lab Results - Last 24 hrs: Laboratory Results - last 24 hr 02/18/20 02/20/20 02/20/20 Range/Units 04:10 06:15 06:15 WBC 5.2 (4.5-11.0) K/uL RBC 3.35 L (4.30-5.90) M/uL Hgb 8.2 L (12.0-15.0) g/dL Hct 27.8 L (40.0-54.0) % MCV 83 (80-98) fL MCH 25 L (27-31) pg MCHC 30 L (32-36) % Plt Count 433 H (150-400) K/uL Neut % (Auto) 75 H (36-66) % Lymph % (Auto) 17 L (24-44) % [place] % (Auto) 8 H (2-6) % Eos % (Auto) 1 L (2-4) % Baso % (Auto) 0 (0-1) % Sodium 135 L (140-148) mmol/L Potassium 3.4 L (3.6-5.2) mmol/L Chloride 102 (100-108) mmol/L Carbon Dioxide 28 (21-32) mmol/L Anion Gap 8.4 (5.0-14.0) mmol/L BUN 13 (7-18) mg/dL Creatinine 0.8 (0.8-1.3) mg/dL Est Cr Clr Drug Dosing 57.33 mL/min Estimated GFR (MDRD) > 60 (>60) Glucose 105 (74-106) mg/dL Calcium 8.3 L (8.5-10.1) mg/dL Blood Type A POSITIVE Gel Antibody Screen Negative Crossmatch See Detail KILLIAN Results - Last 24 hrs: Microbiology 02/17/20 18:34 Urine Culture - Final Urine, Bladder Beta Strep Not Group A Or B Med Orders - Current: Current Medications Acetaminophen (Tylenol) 650 mg PO Q4H PRN PRN Reason: Pain Last Admin: 02/20/20 01:16 Dose: 650 mg Documented by: Aspirin (Aspirin) 81 mg PO DAILY [facility] Last Admin: 02/19/20 08:23 Dose: 81 mg Documented by: Bisacodyl (Dulcolax) 5 mg PO DAILY PRN PRN Reason: Constipation Gabapentin (Neurontin) 300 mg PO TID [facility] Last Admin: 02/19/20 21:12 Dose: 300 mg Documented by: Ceftriaxone Sodium 1 gm/ (Sodium Chloride) 50 mls @ 100 mls/hr IV Q24H [facility] Last Admin: 02/19/20 21:12 Dose: 100 mls/hr Documented by: Potassium Chloride 40 meq/ (Premix) 100 mls @ 25 mls/hr IV ONETIME ONE Stop: 02/20/20 12:18 Lorazepam (Ativan) 1 mg IV Q6H PRN PRN Reason: Nausea/Vomiting Morphine Sulfate (Morphine) 2 mg IVPUSH Q2H PRN PRN Reason: Pain (severe 7-10) Last Admin: 02/19/20 22:17 Dose: 2 mg Documented by: Multivitamins/Minerals (Thera M Plus) 1 tab PO DAILY [facility] Last Admin: 02/19/20 08:24 Dose: 1 tab Documented by: Nicotine (Habitrol) 14 mg TRDERM DAILY [facility] Last Admin: 02/19/20 08:24 Dose: Not Given Documented by: Ondansetron HCl (Zofran Odt) 4 mg PO Q6H PRN PRN Reason: Nausea able to take PO Ondansetron HCl (Zofran) 4 mg IV Q4H PRN PRN Reason: Nausea/Vomiting Oxycodone HCl (Oxycodone) 10 mg PO Q4H PRN PRN Reason: Pain (moderate 4-6) Last Admin: 02/20/20 07:34 Dose: 10 mg Documented by: Pantoprazole Sodium (Protonix Iv) 40 mg IVPUSH BEDTIME [facility] Last Admin: 02/19/20 21:13 Dose: 40 mg Documented by: Polyethylene Glycol (Miralax) 17 gm PO DAILY [facility] Last Admin: 02/19/20 08:24 Dose: Not Given Documented by: Senna/Docusate Sodium (Senna Plus) 2 tab PO DAILY [facility] Last Admin: 02/19/20 08:24 Dose: Not Given Documented by: Simvastatin (Zocor) 40 mg PO BEDTIME [facility] Last Admin: 02/19/20 21:13 Dose: 40 mg Documented by: Sodium Biphosphate/Sodium Phosphate (Fleet Enema) 133 ml RECTAL ONETIME PRN PRN Reason: Constipation Tamsulosin HCl (Flomax) 0.4 mg PO DAILY [facility] Last Admin: 02/19/20 08:23 Dose: 0.4 mg Documented by: Discontinued Medications Bisacodyl (Dulcolax) 10 mg RECTAL ONETIME ONE Stop: 02/17/20 22:13 Last Admin: 02/18/20 00:38 Dose: 10 mg Documented by: Sodium Chloride (Normal Saline) 1,000 mls @ 500 mls/hr IV ASDIRECTED [facility] Last Admin: 02/17/20 17:21 Dose: 500 mls/hr Documented by: Sodium Chloride (Normal Saline) 80 mls @ 3 mls/sec IV ASDIRECTED [facility] Last Admin: 02/17/20 18:56 Dose: 3 mls/sec Documented by: Sodium Chloride (Normal Saline) 1,000 mls @ 300 mls/hr IV ASDIRECTED [facility] Last Admin: 02/17/20 19:43 Dose: 300 mls/hr Documented by: Sodium Chloride (Normal Saline) 1,000 mls @ 125 mls/hr IV ASDIRECTED [facility] Last Admin: 02/18/20 13:52 Dose: 125 mls/hr Documented by: Potassium Chloride 20 meq/Lidocaine HCl 2 ml/ Sodium Chloride 112 mls @ 56 mls/hr IV Q2H [facility] Stop: 02/18/20 13:29 Last Admin: 02/18/20 12:43 Dose: 56 mls/hr Documented by: Sodium Chloride (Normal Saline) 1,000 mls @ 75 mls/hr IV ASDIRECTED [facility] Potassium Chloride 20 meq/Lidocaine HCl 2 ml/ Sodium Chloride 112 mls @ 56 mls/hr IV Q2H [facility] Stop: 02/19/20 16:00 Last Admin: 02/19/20 15:49 Dose: Not Given Documented by: Iopamidol (Isovue-370 (76%)) 100 ml IV . DIRECTED [facility] Last Admin: 02/17/20 18:56 Dose: 100 ml Documented by: Morphine Sulfate (Morphine) 2 mg IVPUSH ONETIME ONE Stop: 02/17/20 20:54 Last Admin: 02/17/20 20:57 Dose: 2 mg Documented by: Sodium Chloride (Saline Flush) 10 ml FLUSH ASDIRECTED PRN PRN Reason: Keep Vein Open Last Admin: 02/17/20 18:56 Dose: 10 ml Documented by: - Exam Quality Assessment: Reports: DVT Prophylaxis General: Reports: Alert, Oriented, Cooperative, Moderate Distress Lungs: Reports: Clear to Auscultation, Normal Respiratory Effort, Decreased Breath Sounds Cardiovascular: Reports: Regular Rate, Regular Rhythm, No Murmurs GI/Abdominal Exam: Soft, No Organomegaly, Tender. No: Distended, Guarding, Rigi d, Rebound Back Exam: Reports: Normal Inspection, Full Range of Motion Extremities: Non-Tender, Pedal Edema
[2020-02-20] MEDS: Polyethylene Glycol 3350 Powder 17 GM Packet PO SCH (09:20)
[2020-02-20] MEDS: Nicotine 14 MG/24 Hr Patch TRDERM SCH (09:20)
[2020-02-20] MEDS: Multivitamins with Iron/Calcium/Folic Acid/Minerals Tab PO SCH (09:21)
[2020-02-20] MEDS: Aspirin 81 MG Tab.Chew PO SCH (09:21)
[2020-02-20] MEDS: Gabapentin 300 MG Cap PO SCH (09:21)
[2020-02-20] MEDS: Tamsulosin 0.4 MG Cap.ER PO SCH (09:21)
[2020-02-20] MEDS ORDERED: POTASSIUM CHLORIDE IV ONE ×2 (09:30)
[2020-02-20] MEDS ORDERED: SODIUM CHLORIDE 0.9% IV ONE ×2 (09:30)
[2020-02-20] MEDS ORDERED: LIDOCAINE 1% IV ONE ×2 (09:30)
== END 2020-02-20 11:54 | DRG 314 ==
LOC: JP.ED 15:15 → JP.MS 20:46
PROVIDERS: ADMIT Hospitalist; ATTEND Hospitalist
PROC: 30233N1 Transfusion of Nonautologous Red Blood Cells into Peripheral Vein, Percutaneous Approach (ICD-10-PCS; principal; 2020-02-18)
DX: N39.0 Urinary tract infection, site not specified (principal); T82.330A Leakage of aortic (bifurcation) graft (replacement), initial encounter; E43 Unspecified severe protein-calorie malnutrition; K66.1 Hemoperitoneum; R47.9 Unspecified speech disturbances; H91.90 Unspecified hearing loss, unspecified ear; N30.01 Acute cystitis with hematuria; J44.9 Chronic obstructive pulmonary disease, unspecified; N40.0 Benign prostatic hyperplasia without lower urinary tract symptoms; Z68.1 Body mass index [BMI] 19.9 or less, adult; I97.638 Postprocedural hematoma of a circulatory system organ or structure following other circulatory system procedure; Z20.828 Contact with and (suspected) exposure to other viral communicable diseases; Z98.890 Other specified postprocedural states; F17.200 Nicotine dependence, unspecified, uncomplicated; D64.9 Anemia, unspecified; E86.0 Dehydration; K59.03 Drug induced constipation; T40.605A Adverse effect of unspecified narcotics, initial encounter; E78.00 Pure hypercholesterolemia, unspecified; M54.9 Dorsalgia, unspecified; G89.29 Other chronic pain; M19.90 Unspecified osteoarthritis, unspecified site; F17.210 Nicotine dependence, cigarettes, uncomplicated; Z79.82 Long term (current) use of aspirin; Z79.899 Other long term (current) drug therapy
CPT/HCPCS: 36415; 70450; 70496; 70498; 74176; 80053; 81001; 82272; 85025; 86140; 87086; 87088; 96360; 96361; 99285; J7030 ×2; J7050; Q9967; 36430; 80048; 85018; 86850; 86900; 86901; 86920; 86922; 94762; A9270-GY; C9113; J0696; J2001; J2270; J3480; P9016; U0002